=== PATIENT | female | born 1940 | race Caucasian/White ===

== ENCOUNTER → 2020-12-16 01:38 | Outpatient (CLI) | payer MEDICARE, SELFPAY ==
[2020-12-17 19:51] LABS: SARS-CoV-2 RNA PCR Negative
== END ==
PROVIDERS: PCP Internal Medicine; Visit Provider Internal Medicine Gastroenterology
DX: Z01.812 Encounter for preprocedural laboratory examination (principal); Z20.822 Contact with and (suspected) exposure to COVID-19
CPT/HCPCS: C9803; U0003; U0005

== ENCOUNTER 2020-12-19 01:53 | Day surgery (SDC) | payer MEDICARE, SELFPAY ==
[2020-12-10 10:21] VITALS: BMI 26.0
--- NOTE | 2020-12-18 13:13 | WPDANESEPPF ---
Anes - Initial Pre Proc Eval Procedure: Operation Date: 12/19/20 11:00 Proposed Procedures p Screening Colonoscopy - Neal Vasquez MD Date/Time: 12/18/20 13:13 Surgeon: Neal Vasquez MD Pre Op Diagnosis: neoplasm screening Patient Data Age: 80 Gender: F Height: 1.57 m Weight: 64.54 kg Allergies Allergy/AdvReac Type Severity Reaction Status Date / Time Aminoglycosides Allergy Mild WORSENS Verified 12/19/20 10:16 THE WOUND AND GETS INFECTED bacitracin Allergy Unknown Unknown Verified 12/19/20 10:16 ciprofloxacin Allergy Unknown Unknown Verified 12/19/20 10:16 levofloxacin Allergy Unknown Unknown Verified 12/19/20 10:16 neomycin Allergy Unknown Unknown Verified 12/19/20 10:16 Penicillins Allergy Unknown Hives Verified 12/19/20 10:16 polymyxin B Allergy Unknown Unknown Verified 12/19/20 10:16 povidone Allergy Unknown Unknown Verified 12/19/20 10:16 soap Allergy Unknown Unknown Verified 12/19/20 10:16 doxycycline Allergy Unknown Verified 12/19/20 10:16 povidone-iodine Allergy Unknown Verified 12/19/20 10:16 [From Betadine] PCN Allergy Intermediate HIVES Uncoded 12/19/20 10:16 POLYMYXINBSULF Allergy Mild WORSENS Uncoded 12/19/20 10:16 THE WOUND AND GETS INFECTED Home Medications Medication Instructions Recorded Confirmed Type coenzyme Q10 [CoQ-10] 200 mg PO DAILY 11/11/20 12/10/20 History gabapentin 300 mg capsule 300 mg PO DAILY 11/11/20 12/10/20 History isosorbide mononitrate 30 mg 30 mg PO DAILY 11/11/20 12/10/20 History tablet,extended release 24 hr latanoprost 0.005 % eye drops 1 drp EACH EYE DAILY 11/11/20 12/10/20 History levothyroxine 75 mcg tablet 75 mcg PO DAILY 11/11/20 12/10/20 History lisinopril 40 mg tablet 40 mg PO BID #180 tablet 11/11/20 12/10/20 Rx metoprolol tartrate 50 mg tablet 50 mg PO Q12H 11/11/20 12/10/20 History nitroglycerin 0.4 mg sublingual 0.4 mg SUBLINGUAL Q5M PRN #24 11/11/20 12/10/20 Rx tablet tablet probiotic 200 mg BYMOUTH DAILY 11/11/20 12/10/20 History rosuvastatin 40 mg tablet 40 mg PO DAILY 11/11/20 12/10/20 History trazodone 50 mg tablet 50 mg PO QHS PRN 11/11/20 12/10/20 History zinc gluconate 50 mg PO DAILY 11/11/20 12/10/20 History cholecalciferol (vitamin D3) 5,000 units PO DAILY 11/26/20 12/10/20 History lorazepam 0.5 mg tablet 0.5 mg PO TID PRN 12/09/20 12/10/20 History Patient hx anesthesia problems: none Family hx anesthesia problems: none PMFSH Past Medical History Medical History (Updated 12/19/20 @ 10:37 by Ty Santoro, ) Abnormal CT of the abdomen Bicuspid aortic valve BMI 25.0-25.9,adult BMI 26.0-26.9,adult Colon cancer screening Encounter for long-term current use of medication Encounter for Medicare annual wellness exam Essential hypertension Fatigue First degree 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 GERD (gastroesophageal reflux disease) Glaucoma History of heart attack 2018 - no intervention Hx of Clostridium difficile infection Hypothyroidism IBS (irritable bowel syndrome) Insomnia On retirement drug therapy KELLY (obstructive sleep apnea) RLS (restless legs syndrome) Skin lesion of right arm Vision loss Surgical History Surgical History History of cataract surgery Family History Family History Mother Diabetes mellitus Depression Thyroid disease Father Hypertension Heart disease Acute myocardial infarction COPD (chronic obstructive pulmonary disease) Sibling FH: prostate cancer Social History Social History Smoking status: Former smoker Tobacco type: cigarettes Alcohol intake: current Drinks per week: 14 Alcohol use details: 1-2 glasses of wine/vodka most days Substance use: never Substance use type: does not use Living arrangements: alone Spiritual care concerns: No
[2020-12-19 10:18] VITALS: BP 148/71; PULSE 65; RESP 16; TEMP 36.1; O2SAT 99
[2020-12-19] MEDS: LACTATED RINGERS 1,000 ML 150 ML IV CONT (10:31)
--- NOTE | 2020-12-19 10:54 | WPDGICN ---
Assessment and Plan Assessment and plan (1) Colon cancer screening: Code(s): Z12.11 - Encounter for screening for malignant neoplasm of colon Status: Acute Assessment and Plan: Patient presents for screening colonoscopy he is been sometime since she had any exam of the colon. (2) IBS (irritable bowel syndrome): Qualifiers: Irritable bowel syndrome type: with diarrhea Qualified Code(s): K58.0 - Irritable bowel syndrome with diarrhea Code(s): K58.9 - Irritable bowel syndrome without diarrhea Status: Acute Assessment and Plan: patient has a history of IBS but takes no specific medications. She is concerned because of change in bowel habits since April of 2020 she now complains of more frequent loose stools. She denies any bleeding. Colonoscopy was performed and was unremarkable. But radiologist states they could not exclude bowel thickening. Diverticular disease was described. I would recommend we reimplant fiber supplements. A colonoscopy will be performed. GI Consult Note Consult date/time: 12/19/20 10:54 HPI: Amy Boyd is a 80 year old female With a history of irritable bowel syndrome and anxiety. Presents for screening colonoscopy. Patient reports diarrhea since April of 2020. Patient reports several soft stools a day. She denies any bleeding. She has had no weight loss. Minimal abdominal pain. Stool cultures apparently were negative earlier this year. In June of 2020: CT scan was also unremarkable. Diverticular disease was described. Patient currently takes no specific medications for her diarrhea. She may have tried Kaopectate on a few occasions. Her family history is noncontributory. She no longer takes fiber supplementation. She presents today for colonoscopy to evaluate change in bowel habits. Review of Systems Review of Systems: All systems reviewed & are unremarkable except as noted in HPI and below [facility] Past Medical History Medical History (Updated 12/19/20 @ 10:37 by Ty Santoro DO) Abnormal CT of the abdomen Bicuspid aortic valve BMI 25.0-25.9,adult BMI 26.0-26.9,adult Colon cancer screening Encounter for long-term current use of medication Encounter for Medicare annual wellness exam Essential hypertension Fatigue First degree 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 GERD (gastroesophageal reflux disease) Glaucoma History of heart attack 2018 - no intervention Hx of Clostridium difficile infection Hypothyroidism IBS (irritable bowel syndrome) Insomnia 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 KELLY (obstructive sleep apnea) RLS (restless legs syndrome) Skin lesion of right arm Vision loss Surgical History Surgical History History of cataract surgery Family History Family History Mother Diabetes mellitus Depression Thyroid disease Father Hypertension Heart disease Acute myocardial infarction COPD (chronic obstructive pulmonary disease) Sibling FH: prostate cancer Social History Social History Smoking status: Former smoker Tobacco type: cigarettes Alcohol intake: current Drinks per week: 14 Alcohol use details: 1-2 glasses of wine/vodka most days Substance use: never Substance use type: does not use Living arrangements: alone Spiritual care concerns: No Meds Home Medications and Allergies Home Medications Medication Instructions Recorded Confirmed Type coenzyme Q10 [CoQ-10] 200 mg PO DAILY 11/11/20 12/10/20 History gabapentin 300 mg capsule 300 mg PO DAILY 11/11/20 12/10/20 History isosorbide mononitrate 30 mg 30 mg PO DAILY 11/11/20 12/10/20 History tablet,extended release 24 hr latanoprost 0.005 % eye drops 1 drp EACH EYE DAILY 11/11/20 12/10/20 History levothyroxine 75 mcg tablet 75 mcg PO DAILY 11/11/2011/12
[2020-12-19 11:45] VITALS: BP 118/53; PULSE 68; RESP 20; O2SAT 100
[2020-12-19 11:55] VITALS: BP 118/56; PULSE 64; RESP 18; O2SAT 100
[2020-12-19 12:05] VITALS: BP 122/65; PULSE 60; RESP 22; O2SAT 100
== END 2020-12-19 12:19 | disposition home or self-care (01) ==
PROVIDERS: PCP Internal Medicine; Visit Provider Internal Medicine Gastroenterology
PROC: 0DJD8ZZ Inspection of Lower Intestinal Tract, Via Natural or Artificial Opening Endoscopic (ICD-10-PCS; CPT 45378; principal; 2020-12-19 11:00)
DX: Z12.11 Encounter for screening for malignant neoplasm of colon (principal); K58.0 Irritable bowel syndrome with diarrhea; K57.30 Diverticulosis of large intestine without perforation or abscess without bleeding; K64.8 Other hemorrhoids; I10 Essential (primary) hypertension; I25.2 Old myocardial infarction; I44.0 Atrioventricular block, first degree; E03.9 Hypothyroidism, unspecified; K21.9 Gastro-esophageal reflux disease without esophagitis; H40.9 Unspecified glaucoma; G47.33 Obstructive sleep apnea (adult) (pediatric); G25.81 Restless legs syndrome; Z79.899 Other long term (current) drug therapy
CPT/HCPCS: G0121; J2704; J7120

== ENCOUNTER → 2021-03-01 00:21 | Outpatient (CLI) | payer MEDICARE, SELFPAY ==
[2021-03-01 18:14] LABS: SARS-CoV-2 RNA PCR Negative
== END ==
PROVIDERS: PCP Internal Medicine; Visit Provider Internal Medicine
DX: R68.89 Other general symptoms and signs (principal); Z20.822 Contact with and (suspected) exposure to COVID-19
CPT/HCPCS: C9803; U0003; U0005

== ENCOUNTER 2022-04-08 10:20 | Inpatient (IN) | payer MEDICARE, SELFPAY ==
[2022-04-08] VITALS (12 sets, daily range): BP systolic 80–152; BP diastolic 42–73; PULSE 67–129; RESP 14–32; TEMP 35.7–37.3; O2SAT 91–96; BMI 26.2
--- NOTE | ~2022-04-08 | US_ITS ---
Limited Abdominal Sonogram: Real-time sonographic imaging of the right upper quadrant was performed. Clinical History: Abnormal liver enzymes Findings: The liver appears normal with no evidence of mass lesion or bile duct dilatation. Main por tyree vein demonstrates normal direction of flow. The gallbladder is well distended, and appears normal with no evidence of gallstone or wall thickening. The common bile duct measures 6 mm. The visualize d pancreas, aorta, and IVC are unremarkable. Impression: No significant abnormality seen. Reviewed, dictated and finalized at location . [facility] Impression: No significant abnormality seen.
--- NOTE | ~2022-04-08 | XR_ITS ---
Clinical Indication: Cough, weakness PA and lateral views of the chest: Comparison: 09/06/2007 Findings: There is left upper lobe consolidation. Possible minimal haziness right lower lobe.. Cardi omediastinal silhouette is within normal limits. Bones and soft tissues are unremarkable. Impression: Left upper lobe pneumonia. Follow-up to radiographic resolution advised. Possible minimal haziness right lower lobe, nonspecific. Reviewed, dictated and finalized at location M. [employer] WORK[employer] Impression: Left upper lobe pneumonia. Follow-up to radiographic resolution advised. Possible minimal haziness right lower lobe, nonspecific.
--- NOTE | 2022-04-08 10:53 | ECG_ITS ---
Measurements Intervals [place] Rate: 81 P: 73 CA: 207 QRS: -50 QRSD: 140 T: 104 QT: 413 QTc: 480 Interpretive Statements SINUS RHYTHM WITH FREQUENT VENTRICULAR PREMATURE COMPLEXES MARKED LEFT AXIS DEVIATION [QRS AXIS < -30] LEFT BUNDLE BRANCH BLOCK [120+ ms QRS DURATION, 80+ ms Q/S IN V1/V2, 85+ ms R IN I/aVL/V5/V6] NO PREVIOUS ECG AVAILABLE FOR COMPARISON Electronically Signed On 04-10-2022 14:40:37 PATIENT RELATIONS SPECIALIST by David Bronson M.D.
[2022-04-08 11:05] LABS: Basophils Absolute Auto 0.2 K/mm3 (0.0-0.1); Basophils Percent Auto 0.8 % (0.2-1.2); Eosinophils Percent Auto 0.1 % (0-4.4); Hematocrit 40.4 % (37.0-47.0); Hemoglobin 13.5 g/dL (12.0-15.0); Immature Granulocyte Absolute 0.48 K/mm3 (0.00-0.031); Immature Granulocyte Percent A 2.4 % (0-0.5); Lymphocytes Absolute Auto 1.52 K/mm3 (0.9-3.2); Lymphocytes Percent Auto 7.6 % (18.3-44.2); Mean Corpuscular HGB Conc 33.4 g/dl (32-36); Mean Corpuscular Hemoglobin 32.8 pg (26-34); Mean Corpuscular Volume 98.3 fl (80-100); Mean Platelet Volume 9.2 fl (7.4-10.4); Monocytes Absolute Auto 2.1 K/mm3 (0.1-0.6); Monocytes Percent Auto 10.4 % (2.6-8.5); Neutrophils Absolute Auto 15.8 K/mm3 (1.3-6.7); Neutrophils Percent Auto 78.7 % (45.5-73.1); Platelet Count Result 310 k/mm3 (150-375); Red Blood Count 4.11 M/mm3 (4.2-5.4)
[2022-04-08 11:14] LABS: Alanine Aminotransferase 114 U/L (6-35); Albumin Level 3.4 g/dL (3.5-5.1); Alkaline Phosphatase 193 U/L (38-126); Anion Gap 5 mmol/L (8-16); Aspartate Amino Transferase 181 U/L (14-36); Bilirubin,Total 0.5 mg/dL (0.2-1.3); Blood Urea Nitrogen 13 mg/dL (7-17); Calcium 7.9 mg/dL (8.4-10.2); Carbon Dioxide 28 mmol/L (22-30); Chloride 90 mmol/L (98-107); Estimated CRCL calculation 30 ml/min; Estimated Glomerular Filt Rate 53; Glucose 152 mg/dL (65-110); Potassium 3.5 mmol/L (3.4-5.0); Sodium 123 mmol/L (137-145)
[2022-04-08 11:41] LABS: Influenza A QL RT-PCR Negative (Negative); Influenza B QL RT-PCR Negative (Negative); SARS-CoV-2 RNA PCR Negative
--- NOTE | 2022-04-08 12:02 | ED.WEAKNESS ---
HPI - Weakness General Chief complaint: Weakness Stated complaint: flu symptom x 1 week, dehydration, fever, weak Time Seen by Provider: 04/08/22 12:01 History of Present Illness HPI Narrative: Patient is an 81-year-old female with a history of hyperlipidemia, hypertension, hypothyroidism presenting with flu symptoms and generalized weakness. Patient states that starting approximately 8 days ago she developed a cough associated with body aches and nasal congestion. States that she has been trying to rest and keep up her fluid intake but its been difficult for the last several days. States that she has a decreased oral intake for the last several days but she denies vomiting. She does report a couple episodes of diarrhea. She denies fevers, numbness or weakness, chest pain, shortness of breath, dysuria, leg swelling. Related Data Home Medications Medication Instructions Recorded Confirmed isosorbide mononitrate 30 mg 30 mg PO DAILY 11/11/20 04/08/22 tablet,extended release 24 hr latanoprost 0.005 % eye drops 1 drp LEFT EYE HS 11/11/20 04/08/22 rosuvastatin 40 mg tablet 40 mg PO DAILY 11/11/20 04/08/22 zinc gluconate 50 mg PO DAILY 11/11/20 04/08/22 cholecalciferol (vitamin D3) 5,000 units PO DAILY 11/26/20 04/08/22 gabapentin 300 mg capsule 300 mg PO HS 04/08/22 04/08/22 lorazepam 0.5 mg tablet 0.5 mg PO PRN PRN Anxiety 04/08/22 04/08/22 timolol maleate 0.5 % eye drops 0.5 drp LEFT EYE DAILY 04/08/22 04/08/22 trazodone 50 mg tablet 50 mg PO QHS 04/08/22 04/08/22 Allergies Allergy/AdvReac Type Severity Reaction Status Date / Time Aminoglycosides Allergy Mild WORSENS Verified 10/28/21 13:11 THE WOUND AND GETS INFECTED bacitracin Allergy Unknown Unknown Verified 10/28/21 13:11 ciprofloxacin Allergy Unknown Unknown Verified 10/28/21 13:11 levofloxacin Allergy Unknown Unknown Verified 10/28/21 13:11 neomycin Allergy Unknown Unknown Verified 10/28/21 13:11 Penicillins Allergy Unknown Hives Verified 10/28/21 13:11 polymyxin B Allergy Unknown Unknown Verified 10/28/21 13:11 povidone Allergy Unknown Unknown Verified 10/28/21 13:11 soap Allergy Unknown Unknown Verified 10/28/21 13:11 doxycycline Allergy Unknown Verified 10/28/21 13:11 povidone-iodine Allergy Unknown Verified 10/28/21 13:11 [From Betadine] Review of Systems Review of Systems: All systems reviewed & are unremarkable except as noted in HPI and below PMFSH Past Medical History Medical History Abnormal CT of the abdomen Adult hypothyroidism Anxiety ASHD (arteriosclerotic heart disease) Benign essential hypertension Bicuspid aortic valve BMI 25.0-25.9,adult BMI 26.0-26.9,adult Cataract Chronic GERD Colon cancer screening Diverticulitis of colon without hemorrhage KAPADIA (dyspnea on exertion) Eczema Encounter for long-term current use of medication Encounter for Medicare annual wellness exam Encounter for routine adult health examination with abnormal findings Encounter for routine adult health examination without abnormal findings Essential hypertension Exposure to COVID-19 virus Fatigue First degree 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 GERD (gastroesophageal reflux disease) Glaucoma History of heart attack 2018 - no intervention Hx of Clostridium difficile infection Hyperlipidemia Hypothyroidism IBS (irritable bowel syndrome) Insomnia Leg cramps Low vision Muscle weakness On intermediate drug therapy KELLY (obstructive sleep apnea) Other and unspecified hyperlipidemia PVC (premature ventricular contraction) Recurrent sinus infections RLS (restless legs syndrome) Skin lesion of right arm UTI (urinary tract infection) UTI symptoms Vision loss Surgical History Surgical History History of cataract surgery Family History Family History Mother Diabetes mellitus
[2022-04-08 12:48] LABS: Lactic Acid Reflex 1.4 mmol/L (0.7-2.0)
[2022-04-08 12:59] LABS: Creatinine Urine 71.1 mg/dL
[2022-04-08 13:00] LABS: Troponin I < 0.012 ng/mL (0.000-0.034)
[2022-04-08 13:00] LABS: Sodium Urine Random 10 meq/L
[2022-04-08 13:02] LABS: Add Urine Microscopic? YES; Appearance Urine Clear (Clear); Bilirubin Urine Negative (Negative); Blood Urine 2+ (Negative); Color Urine Light Yellow (Yellow); Glucose Urine UA Negative (Negative); Ketones Urine Negative (Negative); Leukocyte Esterase Ur Negative LEU/UL (Negative); Nitrate Urine Negative (Negative); Protein Urine 2+ mg/dL (Negative); pH Urine 5.5 (5.0-9.0)
[2022-04-08] MEDS: SODIUM CHLORIDE 0.9% IV 1,000 ML 999 ML IV CONT (13:09)
[2022-04-08 13:27] LABS: Mucus Urine Rare /lpf; RBC Urine 0-2 /hpf (0-2); Squamous Epithelial Cell Urine Rare /hpf (Few)
--- NOTE | 2022-04-08 15:19 | PC.NURSE ---
meal tray ordered
[2022-04-08 16:12] LABS: Troponin I < 0.012 ng/mL (0.000-0.034)
--- NOTE | 2022-04-08 16:34 | PC.NURSE ---
This patient, Amy Boyd, was admitted to [facility] Surg Room 312-01. Patient/family oriented to hospital policies and general routines including ID bracelet, bed and alarms, visiting hours, pain management, procedures, bathroom and other care routines, personal items, smoking policy, room service/diet, and visiting hours. Information on how to activate the Rapid Response Team has been discussed. Patient/Family are encouraged to report perceived risks to care and to ask questions if they do not understand what they are told or what they should do.
--- NOTE | 2022-04-08 19:38 | PM.IMHP ---
H&P: HPI History of Present Illness Date/Time: 04/08/22 19:38 Chief Complaint: Weakness Narrative: This is an 81-year-old female patient who has a history of hyperlipidemia, hypertension and hypothyroidism. The patient came to the emergency room with complaints of flu-like symptoms and generalized weakness. The patient stated that her symptoms started approximately 8 days ago. She has been taking Mucinex for the nasal congestion. The patient stated that she has been coughing up sputum it is not aware what collar the sputum is. She had a decrease in oral intake for the last several days. She has had a poor appetite. She has not had any nausea vomiting but has had a couple episodes of diarrhea. She has had no fever chills. No shortness of breath. Nose leg swelling. Her white count is noted to be 20.0. Her sodium is 123. Her sodium is typically normal. Her lactic is normal 1.4. Troponin is nonreactive. Liver enzymes are elevated. She was found to be negative for influenza A/B and COVID. She was started on vancomycin and cefepime as well as IV fluids. The patient's chest x-ray was read as possible minimal haziness right lower lobe nonspecific. Left upper lobe pneumonia. The patient is being admitted to observation status on the date of service of 04/08/2022. Review of Systems Review of Systems: See HPI All systems reviewed & are unremarkable except as noted in HPI and below Constitutional: Constitutional: Reports as per HPI and Reports no additional constitutional complaints Eyes: Eyes: Reports as per HPI and Reports no additional eye complaints ENT: Reports system reviewed and no additional complaints, except as documented and Reports Normal hearing present Cardiovascular: Cardiovascular: Reports no additional cardiovascular complaints Respiratory: Respiratory: Reports no additional respiratory complaints and Reports no additional respiratory complaints Gastrointestinal: Gastrointestinal: Reports as per HPI and Reports no additional gastrointestinal complaints Musculoskeletal: Musculoskeletal: Reports no additional musculoskeletal complaints Integumentary/Breasts: Skin/Breast: Reports system reviewed and no additional complaints, except as docu and Reports as per HPI Neurologic: Reports system reviewed and no additional complaints, except as documented, Reports as per HPI and Reports Normal hearing present Psychiatric: Psychiatric: Reports no additional psychiatric complaints and Reports as per HPI Endocrine: Endocrine: Reports no additional endocrine complaints Hematologic/Lymphatic: Hematologic/Lymphatic: Reports no additional hematologic/lymphatic complaints Allergic/Immunologic: Allergic/Immunologic: Reports no additional allergic/immunologic complaints [facility] Past Medical History Medical History (Updated 04/08/22 @ 22:37 by Ana Sawant NP) Abnormal CT of the abdomen Adult hypothyroidism Anxiety ASHD (arteriosclerotic heart disease) Benign essential hypertension Bicuspid aortic valve BMI 25.0-25.9,adult BMI 26.0-26.9,adult Cataract Chronic GERD Colon cancer screening Depression Diverticulitis of colon without hemorrhage KAPADIA (dyspnea on exertion) Eczema Encounter for long-term current use of medication Encounter for Medicare annual wellness exam Encounter for routine adult health examination with abnormal findings Encounter for routine adult health examination without abnormal findings Essential hypertension Exposure to COVID-19 virus Fatigue First degree 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 GERD (gastroesophageal reflux disease) Glaucoma History of heart attack 2018 - no intervention Hx of Clostridium difficile infection Hyperlipidemia Hypothyroidism IBS (irritable bowel syndrome) Insomnia Leg cramps Low vision Muscle weakness 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
[2022-04-08] MEDS: LATANOPROST 0.005% OP SOLN 2.5 ML BTL 1 DROP LEFT EYE (22:54)
[2022-04-08] MEDS: LORazepam (*CRX) 0.5 MG TABLET PO (22:54)
[2022-04-08] MEDS: METOPROLOL TARTRATE 50 MG TAB PO (22:54)
[2022-04-08] MEDS: traZODone HCL 50 MG TABLET PO (22:54)
[2022-04-08] MEDS: lisinopriL 20 MG TABLET 40 MG PO (22:55)
[2022-04-08] MEDS: GABAPENTIN 300 MG CAPSULE PO (22:55)
[2022-04-08 23:20] LABS: Anion Gap 7 mmol/L (8-16); Blood Urea Nitrogen 12 mg/dL (7-17); Calcium 7.9 mg/dL (8.4-10.2); Carbon Dioxide 26 mmol/L (22-30); Chloride 94 mmol/L (98-107); Estimated CRCL calculation 33 ml/min; Estimated Glomerular Filt Rate 60; Glucose 110 mg/dL (65-110); Potassium 3.2 mmol/L (3.4-5.0); Sodium 127 mmol/L (137-145)
[2022-04-09] VITALS (23 sets, daily range): BP systolic 105–125; BP diastolic 60–70; PULSE 88–105; RESP 14–26; TEMP 36.6–37.3; O2SAT 90–97; BMI 26.2
[2022-04-09] MEDS: IPRATROPIUM BR 0.02% INH SOLN 0.5 MG/2.5 ML VIAL INHALATION ×4 (02:55→21:33)
[2022-04-09] MEDS: ALBUTEROL SULFATE NEB 2.5 MG/3 ML INH INHALATION ×4 (02:56→21:36)
[2022-04-09] MEDS: LEVOTHYROXINE SODIUM 75 MCG TABLET PO (06:52)
[2022-04-09 06:59] LABS: Lactic Acid Reflex 0.9 mmol/L (0.7-2.0)
[2022-04-09 07:01] LABS: Alanine Aminotransferase 129 U/L (6-35); Albumin Level 2.8 g/dL (3.5-5.1); Alkaline Phosphatase 193 U/L (38-126); Anion Gap 5 mmol/L (8-16); Aspartate Amino Transferase 188 U/L (14-36); Bilirubin,Total 0.4 mg/dL (0.2-1.3); Blood Urea Nitrogen 11 mg/dL (7-17); Calcium 7.6 mg/dL (8.4-10.2); Carbon Dioxide 27 mmol/L (22-30); Chloride 98 mmol/L (98-107); Estimated CRCL calculation 37 ml/min; Estimated Glomerular Filt Rate > 60; Glucose 102 mg/dL (65-110); Lactate Dehydrogenase 330 U/L (120-246); Magnesium 2.3 mg/dL (1.6-2.3); Potassium 3.1 mmol/L (3.4-5.0); Sodium 130 mmol/L (137-145)
[2022-04-09 07:39] LABS: Thyroid Stimulating Hormone Reflex 0.747 uIU/mL (0.465-4.68)
[2022-04-09 07:55] LABS: Hepatitis B Surface Antigen Negative (Negative)
[2022-04-09 07:59] LABS: HAV RESULT Negative (Negative); Hepatitis B Core IgM Result Negative (Negative)
[2022-04-09 08:10] LABS: Hepatitis C Virus Antibody Negative (Negative)
[2022-04-09 09:20] LABS: Basophils Absolute Auto 0.1 K/mm3 (0.0-0.1); Basophils Percent Auto 0.5 % (0.2-1.2); Eosinophils Percent Auto 0.2 % (0-4.4); Hematocrit 34.6 % (37.0-47.0); Hemoglobin 12.1 g/dL (12.0-15.0); Immature Granulocyte Absolute 0.33 K/mm3 (0.00-0.031); Lymphocytes Absolute Auto 1.53 K/mm3 (0.9-3.2); Lymphocytes Percent Auto 9.2 % (18.3-44.2); Mean Corpuscular Hemoglobin 33.7 pg (26-34); Mean Corpuscular Volume 96.4 fl (80-100); Mean Platelet Volume 9.6 fl (7.4-10.4); Monocytes Absolute Auto 2.1 K/mm3 (0.1-0.6); Monocytes Percent Auto 12.3 % (2.6-8.5); Neutrophils Absolute Auto 12.6 K/mm3 (1.3-6.7); Neutrophils Percent Auto 75.8 % (45.5-73.1); Platelet Count Result 249 k/mm3 (150-375); Red Blood Count 3.59 M/mm3 (4.2-5.4); Red Cell Distribution Width 12.2 % (11.5-14.5); White Blood Count 16.7 K/mm3 (4.5-10.0)
[2022-04-09] MEDS: ISOSORBIDE MONONITRATE 30 MG TAB.ER.24H PO (09:51)
[2022-04-09] MEDS: METOPROLOL TARTRATE 50 MG TAB PO ×2 (09:51→21:13)
[2022-04-09] MEDS: lisinopriL 20 MG TABLET 40 MG PO ×2 (09:51→21:14)
[2022-04-09] MEDS: TIMOLOL MALEATE 0.5% OP SOLN 5 ML BOTTLE 1 DROP LEFT EYE (09:52)
[2022-04-09] MEDS: POTASSIUM CHLORIDE 20 MEQ TABLET 40 MEQ PO (10:01)
[2022-04-09] MEDS: guaiFENesin/DEXTROMETHORPHAN 10 ML UDC PO ×2 (11:13→16:10)
--- NOTE | 2022-04-09 13:05 | PM.IMPN ---
Progress Note: A&P Assessment and Plan (1) Pneumonia: Code(s): J18.9 - Pneumonia, unspecified organism Status: Acute Assessment and Plan: -the patient was started on cefepime and vancomycin. The pain was renally adjusted by pharmacy. -blood cultures and sputum cultures are pending. -tailor antibiotics to results of cultures. -continue with nebulizer treatments. -continue with Robitussin. -patient had leukocytosis with white count of 20. -may be early sepsis with elevated liver enzymes. Continue to monitor for signs and symptoms of organ failure (2) Hyponatremia: Code(s): E87.1 - Hypo-osmolality and hyponatremia Status: Acute Assessment and Plan: -most likely related to poor oral intake. The patient is not on any diuretics. -continue with IV fluids -serum osmolality is pending. Urine osmolality is pending as well. (3) Hyperlipidemia: Code(s): E78.5 - Hyperlipidemia, unspecified Status: Acute Assessment and Plan: -holding statins as her liver enzymes are elevated. (4) Elevated liver enzymes: Code(s): R74.8 - Abnormal levels of other serum enzymes Status: Acute Assessment and Plan: -holding statin due to elevated liver enzymes. -will do ultrasound of her abdomen. -hepatitis panel is pending (5) Glaucoma: Qualifiers: Glaucoma type: unspecified Laterality: unspecified laterality Qualified Code(s): H40.9 - Unspecified glaucoma Code(s): H40.9 - Unspecified glaucoma Status: Acute Assessment and Plan: -continue with home eye drops. (6) Hypothyroidism: Qualifiers: Hypothyroidism type: unspecified Qualified Code(s): E03.9 - Hypothyroidism, unspecified Code(s): E03.9 - Hypothyroidism, unspecified Status: Acute Assessment and Plan: -continue levothyroxine and check thyroid level. (7) Essential hypertension: Code(s): I10 - Essential (primary) hypertension Status: Acute Assessment and Plan: -continue with lisinopril if blood pressure allows. -continue with isosorbide. -continue with metoprolol (8) GERD (gastroesophageal reflux disease): Code(s): K21.9 - Gastro-esophageal reflux disease without esophagitis Status: Acute Assessment and Plan: -continue with pantoprazole (9) Depression: Code(s): F32.A - Depression, unspecified Status: Acute Assessment and Plan: -continue with trazodone at night and lorazepam for anxiety. Subjective Date/time seen: 04/09/22 13:05 No complaints Exam Narrative: See HPI Const: General: cooperative, comfortable, no acute distress, well developed, alert, awake, Physically active, ill appearing, average body habitus and well nourished Nutritional Appearance: average body habitus and well nourished Orientation/consciousness: oriented to person, oriented to place, oriented to time and patient oriented x3 Limitations: no limitations HENMT: Head: normal to inspection, No palpable skull fracture present, normocephalic and atraumatic Ears: hearing grossly normal bilaterally and external ears normal Face/Nose/Sinus: Normal external nose present and Normal nares present Eyes: General: appearance normal, both eyes and all related structures Alignment and Position: alignment normal Periorbital: periorbital findings normal Eyelids: eyelids normal Sclera: sclerae normal Pupils: Equal, round and reactive pupils present EOM: EOMs intact bilaterally Neck: Neck: normal visual inspection, full ROM, no lymphadenopathy, trachea midline and supple Chest: Chest palpation & inspection: normal inspection of the chest Resp: Effort & Inspection: normal respiratory effort Auscultation: clear to auscultation bilaterally and wheezes Percussion: percussion normal Cardio: Palpation: normal PMI Rate: regular rate Rhythm: regular rhythm Heart sounds: S1 normal heart sound present and S2 normal heart sound pre
[2022-04-09] MEDS: GABAPENTIN 300 MG CAPSULE PO (21:12)
[2022-04-09] MEDS: LATANOPROST 0.005% OP SOLN 2.5 ML BTL 1 DROP LEFT EYE (21:13)
[2022-04-09] MEDS: traZODone HCL 50 MG TABLET PO (21:19)
[2022-04-09] MEDS: ACETAMINOPHEN 500 MG TABLET PO (22:49)
[2022-04-10] VITALS (12 sets, daily range): BP systolic 122–152; BP diastolic 73–77; PULSE 80–107; RESP 16–18; TEMP 36.8–37.7; O2SAT 90–97
[2022-04-10] MEDS: IPRATROPIUM BR 0.02% INH SOLN 0.5 MG/2.5 ML VIAL INHALATION ×2 (02:29→08:34)
[2022-04-10] MEDS: ALBUTEROL SULFATE NEB 2.5 MG/3 ML INH INHALATION ×2 (02:29→08:34)
[2022-04-10] MEDS: LEVOTHYROXINE SODIUM 75 MCG TABLET PO (06:08)
[2022-04-10 06:53] LABS: Hematocrit 42.1 % (37.0-47.0); Hemoglobin 14.2 g/dL (12.0-15.0); Mean Corpuscular HGB Conc 33.7 g/dl (32-36); Mean Corpuscular Hemoglobin 33.7 pg (26-34); Mean Platelet Volume 9.1 fl (7.4-10.4); Platelet Count Result 320 k/mm3 (150-375); Red Blood Count 4.21 M/mm3 (4.2-5.4); Red Cell Distribution Width 12.5 % (11.5-14.5); White Blood Count 17.9 K/mm3 (4.5-10.0)
[2022-04-10 07:03] LABS: Anion Gap 6 mmol/L (8-16); Blood Urea Nitrogen 12 mg/dL (7-17); Calcium 8.3 mg/dL (8.4-10.2); Carbon Dioxide 31 mmol/L (22-30); Chloride 97 mmol/L (98-107); Estimated CRCL calculation 41 ml/min; Estimated Glomerular Filt Rate > 60; Glucose 107 mg/dL (65-110); Potassium 3.7 mmol/L (3.4-5.0); Sodium 134 mmol/L (137-145)
[2022-04-10 08:00] LABS: Band Neutrophils Percent 22 % (0-6); Lymphocytes Absolute Manual 2.86 K/mm3 (1.1-4.5); Monocytes Absolute Manual 1.25 K/mm3 (0.1-0.90); Monocytes Percent Manual 7 % (3-9); Neutrophils Absolute Manual 13.78 K/mm3 (1.7-7.2); Neutrophils Percent Manual 55 % (46-73); Platelet Estimate Adequate (Adequate); Total Cells Counted 100
[2022-04-10 08:01] LABS: Anisocytosis 1+ (NORMAL)
[2022-04-10 08:15] LABS: Schistocytes None Seen (NORMAL)
[2022-04-10] MEDS: lisinopriL 20 MG TABLET 40 MG PO (09:11)
[2022-04-10] MEDS: ISOSORBIDE MONONITRATE 30 MG TAB.ER.24H PO (09:11)
[2022-04-10] MEDS: TIMOLOL MALEATE 0.5% OP SOLN 5 ML BOTTLE 1 DROP LEFT EYE (09:12)
[2022-04-10] MEDS: METOPROLOL TARTRATE 50 MG TAB PO (09:13)
[2022-04-10] MEDS: guaiFENesin/DEXTROMETHORPHAN 10 ML UDC PO (11:21)
--- NOTE | 2022-04-10 13:10 | PM.DS ---
DS: Admitting Diagnosis Discharge Date April 10, 2022 Admitting Diagnosis Pneumonia DS: Discharge Diagnosis Discharge Diagnosis (1) Pneumonia: Code(s): J18.9 - Pneumonia, unspecified organism Status: Acute Assessment and Plan: -the patient was started on cefepime and vancomycin. -blood cultures and sputum cultures are pending. -tailor antibiotics to results of cultures. -continue with nebulizer treatments. -continue with Robitussin. -patient had leukocytosis with white count of 20. -may be early sepsis with elevated liver enzymes. Continue to monitor for signs and symptoms of organ failure (2) Hyponatremia: Code(s): E87.1 - Hypo-osmolality and hyponatremia Status: Acute Assessment and Plan: -most likely related to poor oral intake. The patient is not on any diuretics. -continue with IV fluids -serum osmolality is pending. Urine osmolality is pending as well. (3) Hyperlipidemia: Code(s): E78.5 - Hyperlipidemia, unspecified Status: Acute Assessment and Plan: -holding statins as her liver enzymes are elevated. (4) Elevated liver enzymes: Code(s): R74.8 - Abnormal levels of other serum enzymes Status: Acute Assessment and Plan: -holding statin due to elevated liver enzymes. -will do ultrasound of her abdomen. -hepatitis panel is pending (5) Glaucoma: Qualifiers: Glaucoma type: unspecified Laterality: unspecified laterality Qualified Code(s): H40.9 - Unspecified glaucoma Code(s): H40.9 - Unspecified glaucoma Status: Acute Assessment and Plan: -continue with home eye drops. (6) Hypothyroidism: Qualifiers: Hypothyroidism type: unspecified Qualified Code(s): E03.9 - Hypothyroidism, unspecified Code(s): E03.9 - Hypothyroidism, unspecified Status: Acute Assessment and Plan: -continue levothyroxine and check thyroid level. (7) Essential hypertension: Code(s): I10 - Essential (primary) hypertension Status: Acute Assessment and Plan: -continue with lisinopril if blood pressure allows. -continue with isosorbide. -continue with metoprolol (8) GERD (gastroesophageal reflux disease): Code(s): K21.9 - Gastro-esophageal reflux disease without esophagitis Status: Acute Assessment and Plan: -continue with pantoprazole (9) Depression: Code(s): F32.A - Depression, unspecified Status: Acute Assessment and Plan: -continue with trazodone at night and lorazepam for anxiety. DS: Summary Hospital Course Hospital Course: Patient is an 81-year-old female who came in with pneumonia. Started on antibiotics improved clinically. She is sitting in her chair and able to walk around her room without any oxygen needs. Patient wants to go. Patient will be discharged home on oral antibiotics. Will need follow-up primary care physician. Will need a follow-up chest x-ray as well in a couple weeks Time Spent with Patient Time attestation: Total time spent providing and/or coordinating discharge services: Exam Const: General: cooperative, comfortable, no acute distress, well developed, alert, awake, Physically active, ill appearing, average body habitus and well nourished Nutritional Appearance: average body habitus and well nourished Orientation/consciousness: oriented to person, oriented to place, oriented to time and patient oriented x3 Limitations: no limitations HENMT: Head: normal to inspection, No palpable skull fracture present, normocephalic and atraumatic Ears: hearing grossly normal bilaterally and external ears normal Face/Nose/Sinus: Normal external nose present and Normal nares present Eyes: General: appearance normal, both eyes and all related structures Alignment and Position: alignment normal Periorbital: periorbital findings normal Eyelids: eyelids normal Sclera: sclerae normal Pupils: Equal, round and reactive
[2022-04-10] MEDS: ACETAMINOPHEN 500 MG TABLET PO (13:18)
[2022-04-10 19:43] LABS: Osmolality, Urine 279 mOsm/kg (50-1200)
== END 2022-04-10 14:15 | disposition home or self-care (01) | DRG 194 ==
LOC: ANHED 12:06 → ANH3MEDSUR 15:31
PROVIDERS: General Practice; Nurse Practitioner; Admitting Provider Internal Medicine; Emergency Provider Emergency Medicine; PCP Internal Medicine; Visit Provider Chiropractor
DX: J18.9 Pneumonia, unspecified organism (principal); E87.1 Hypo-osmolality and hyponatremia; I10 Essential (primary) hypertension; I25.10 Atherosclerotic heart disease of native coronary artery without angina pectoris; E03.9 Hypothyroidism, unspecified; E78.5 Hyperlipidemia, unspecified; K21.9 Gastro-esophageal reflux disease without esophagitis; K57.30 Diverticulosis of large intestine without perforation or abscess without bleeding; K58.9 Irritable bowel syndrome, unspecified; R74.8 Abnormal levels of other serum enzymes; I25.2 Old myocardial infarction; H40.9 Unspecified glaucoma; G47.33 Obstructive sleep apnea (adult) (pediatric); F41.9 Anxiety disorder, unspecified; Z20.822 Contact with and (suspected) exposure to COVID-19; Z79.899 Other long term (current) drug therapy; Z87.891 Personal history of nicotine dependence
CPT/HCPCS: 36415; 71046; 76705; 80048; 80053; 80074; 81001; 82570; 83605; 83615; 83735; 83930; 83935; 84300; 84443; 84484; 85025; 87040; 87086; 87636; 93005; 94640; 96365; 96366; 96367; 99285; A9270; G0378; J0692; J3370; J7030

== ENCOUNTER → 2022-04-24 09:40 | Outpatient (CLI) | payer MEDICARE, SELFPAY ==
--- NOTE | ~2022-04-24 | XR_ITS ---
EXAMINATION: XR chest 2V DATE: 04/24/2022 10:13 INDICATION: Pneumonia, unspecified, continued cough TECHNIQUE: PA and lateral views of the chest are obtained. COMPARISON: 03/31/2022 FINDINGS: There are persistent but improved airspace opacities of the left upper lobe. Scarring is no raissa in the lung apices. There is a small left pleural effusion without significant change. No pneumot horax is identified. The cardiomediastinal silhouette is normal. There is mild thoracic spondylosis. IMPRESSION: 1. Left upper lobe airspace opacities with interval improvement, consistent with resolving pneumonia. Continued radiographic follow-up to resolution is recommended. Reviewed, dictated and finalized at location B. TER SUPERVISOR IMPRESSION: 1. Left upper lobe airspace opacities with interval improvement, consistent wit h resolving pneumonia. Continued radiographic follow-up to resolution is recomm ended.
== END ==
PROVIDERS: PCP Nurse Practitioner; Visit Provider Nurse Practitioner
DX: J18.9 Pneumonia, unspecified organism (principal)
CPT/HCPCS: 71046

== ENCOUNTER → 2022-05-15 09:20 | Outpatient (CLI) | payer MEDICARE, SELFPAY ==
--- NOTE | ~2022-05-15 | XR_ITS ---
Clinical Indication: Pneumonia PA and lateral views of the chest: Comparison: 04/24/2022 Findings: There is persistent left upper lobe irregular airspace consolidation.. Cardiomediastinal s ilhouette is within normal limits. Bones and soft tissues are unremarkable. Impression: Persistent irregular area of left upper lobe airspace consolidation. Although this could reflect slow ly resolving pneumonia, persistence since 04/08/2022 raises the possibility of alternative diagnosis, such as neoplasm. Consider CT scan to further assess the morphology of this abnormality Reviewed, dictated and finalized at location M. ER OPERATOR AUTOMATIC Impression: Persistent irregular area of left upper lobe airspace consolidation. Although t his could reflect slowly resolving pneumonia, persistence since 04/08/2022 rais es the possibility of alternative diagnosis, such as neoplasm. Consider CT scan to further assess the morphology of this abnormality
== END ==
PROVIDERS: PCP Internal Medicine; Visit Provider Nurse Practitioner
DX: J18.9 Pneumonia, unspecified organism (principal)
CPT/HCPCS: 71046

== ENCOUNTER 2022-05-20 13:27 | Outpatient (CLI) | payer MEDICARE, SELFPAY ==
--- NOTE | ~2022-05-20 | CT_ITS ---
EXAMINATION: CT diagnostic chest wo con DATE: 05/20/2022 14:01 INDICATION: Persistent airspace opacification of the left upper lobe on chest radiograph TECHNIQUE: Computed tomography (CT) of the chest was performed without intravenous contrast. The dose -length product (DLP) was 144.78 mGy-cm. Automated exposure control and iterative reconstruction tech ROLI were employed. COMPARISON: Chest radiograph, 05/15/2022 FINDINGS: There are airspace opacities of the upper lobes, left greater than right, right middle lobe , and left lower lobe. There is mild pleural thickening in the left lung base with a chronic adjacent rounded pleural-based opacity, consistent with rounded atelectasis. No pathologically enlarged thora cic lymph nodes are identified. The heart size is normal. There is calcified coronary artery atherosc lerosis. No pleural effusion or pneumothorax. There is mild thoracic spondylosis. IMPRESSION: 1. Airspace opacities of the upper lobes, right middle lobe, and left lower lobe most consistent with resolving infection/inflammation. Consider follow-up low-dose CT in three months. Reviewed, dictated and finalized at location B. [employer] IMPRESSION: 1. Airspace opacities of the upper lobes, right middle lobe, and left lower lob e most consistent with resolving infection/inflammation. Consider follow-up low -dose CT in three months.
== END 2022-05-20 13:28 | disposition home or self-care (01) ==
PROVIDERS: PCP Internal Medicine; Visit Provider Nurse Practitioner
DX: R93.89 Abnormal findings on diagnostic imaging of other specified body structures (principal)
CPT/HCPCS: 71250

== ENCOUNTER 2022-07-12 18:14 | Emergency (ER) | payer MEDICARE, SELFPAY ==
[2022-07-12 18:26] VITALS: BP 208/78; PULSE 69; RESP 18; TEMP 37; O2SAT 98
--- NOTE | 2022-07-12 18:35 | ED.GENADULT ---
HPI - General Adult General Chief complaint: Recheck/Abnormal Lab/Rx Stated complaint: High B/P Time Seen by Provider: 07/12/22 18:35 Source: patient Mode of arrival: ambulatory Limitations: no limitations History of Present Illness HPI narrative: 81-year-old female with history of hypertension presents today with complaint pain to left forehead throbbing, dyspnea. States that last time the vein to her forehead was throbbing her blood pressure was elevated. She checked at in her blood pressure was high. [facility] and they checked her blood pressure for her and it was still elevated. Was told to go to the ER by the pharmacist. Patient states [facility] she thought we could do the same thing here. She denies chest pain. Patient takes lisinopril, metoprolol and isosorbide for high blood pressure and states that she has not missed any doses. All systems reviewed and negative except as noted above. Related Data Home Medications Medication Instructions Recorded Confirmed isosorbide mononitrate 30 mg 30 mg PO DAILY 11/11/20 04/16/22 tablet,extended release 24 hr latanoprost 0.005 % eye drops 1 drp LEFT EYE HS 11/11/20 04/16/22 timolol maleate 0.5 % eye drops 0.5 drp LEFT EYE DAILY 04/08/22 04/16/22 aspirin 81 mg tablet,delayed 81 mg PO DAILY 05/05/22 release (Adult Low Dose Aspirin) Allergies Allergy/AdvReac Type Severity Reaction Status Date / Time Aminoglycosides Allergy Mild WORSENS Verified 07/12/22 18:24 THE WOUND AND GETS INFECTED bacitracin Allergy Unknown Unknown Verified 07/12/22 18:24 ciprofloxacin Allergy Unknown Unknown Verified 07/12/22 18:24 levofloxacin Allergy Unknown Unknown Verified 07/12/22 18:24 neomycin Allergy Unknown Unknown Verified 07/12/22 18:24 Penicillins Allergy Unknown Hives Verified 07/12/22 18:24 polymyxin B Allergy Unknown Unknown Verified 07/12/22 18:24 povidone Allergy Unknown Unknown Verified 07/12/22 18:24 soap Allergy Unknown Unknown Verified 07/12/22 18:24 doxycycline Allergy Unknown Verified 07/12/22 18:24 povidone-iodine Allergy Unknown Verified 07/12/22 18:24 [From Betadine] Review of Systems Review of Systems: CONSTITUTIONAL: Denies fever, chills, or sweats. EYES: Denies visual changes, redness, or discharge. ENT: Denies rhinorrhea, congestion, sore throat, or otalgia. CARDIOVASCULAR: Denies chest pain, palpitations, or edema. Reports dyspnea. RESPIRATORY: Denies cough or dyspnea. GASTROINTESTINAL: Denies abdominal pain, nausea, vomiting, or diarrhea. GENITOURINARY: Denies dysuria or hematuria. SKIN: Denies rash or itching. MUSCULOSKELETAL: Denies back pain, joint pain, or myalgia. NEUROLOGIC: Reports headache. Denies numbness, or weakness. PSYCHIATRIC: Denies anxiety or depression. All other systems reviewed are negative, except as documented in HPI. [facility] Past Medical History Medical History Abnormal CT of the abdomen Adult hypothyroidism Anxiety ASHD (arteriosclerotic heart disease) Benign essential hypertension Bicuspid aortic valve BMI 25.0-25.9,adult BMI 26.0-26.9,adult Cataract Chronic GERD Colon cancer screening Depression Diverticulitis of colon without hemorrhage KAPADIA (dyspnea on exertion) Eczema Encounter for long-term current use of medication Encounter for Medicare annual wellness exam Encounter for routine adult health examination with abnormal findings Encounter for routine adult health examination without abnormal findings Essential hypertension Exposure to COVID-19 virus Fatigue First degree 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 GERD (gastroesophageal reflux disease) Glaucoma History of heart attack 2018 - no intervention Hx of Clostridium difficile infection Hyperlipidemia Hypothyroidism IBS (irritable bowel syndrome) Insomnia Leg cramps Low vision Muscle weakness On custodial drug therapy KELLY (obstructive
--- NOTE | 2022-07-12 18:36 | ECG_ITS ---
Measurements Intervals [place] Rate: 66 P: 77 DC: 210 QRS: -49 QRSD: 126 T: 104 QT: 403 QTc: 424 Interpretive Statements SINUS RHYTHM WITH FIRST DEGREE AV BLOCK POSSIBLE LEFT ATRIAL ENLARGEMENT [-0.1mV P WAVE IN V1/V2] MARKED LEFT AXIS DEVIATION [QRS AXIS < -30] LEFT BUNDLE BRANCH BLOCK [120+ ms QRS DURATION, 80+ ms Q/S IN V1/V2, 85+ ms R IN I/aVL/V5/V6] COMPARED TO ECG 04/08/2022 10:49:18 FIRST DEGREE AV BLOCK NOW PRESENT Electronically Signed On 07-13-2022 12:17:55 CDT by Anushka Bull M.D.
[2022-07-12 18:41] VITALS: BP 220/100
== END 2022-07-12 18:51 | disposition short-term general hospital (02) ==
PROVIDERS: Emergency Provider Nurse Practitioner Family; PCP Nurse Practitioner
DX: I10 Essential (primary) hypertension (principal); R06.00 Dyspnea, unspecified; I44.0 Atrioventricular block, first degree; I44.7 Left bundle-branch block, unspecified; Z87.891 Personal history of nicotine dependence; E03.9 Hypothyroidism, unspecified; K21.9 Gastro-esophageal reflux disease without esophagitis; H40.9 Unspecified glaucoma; I25.2 Old myocardial infarction; E78.5 Hyperlipidemia, unspecified; G47.33 Obstructive sleep apnea (adult) (pediatric); Z91.199 Patient's noncompliance with other medical treatment and regimen due to unspecified reason; G25.81 Restless legs syndrome
CPT/HCPCS: 93005; 99213; G0463

== ENCOUNTER 2022-07-12 19:15 | Observation (INO) | payer MEDICARE, SELFPAY ==
--- NOTE | ~2022-07-12 | CT_ITS ---
EXAMINATION: CTA brain carotid DATE: 07/13/2022 01:30 INDICATION: Left-sided headache. TECHNIQUE: Computed tomographic angiography (CTA) of the head was performed without and with 100 mL O mnipaque-350 intravenous contrast. CTA of the neck was performed with intravenous contrast. Automated exposure control and iterative reconstruction technique were employed. The dose-length product was 1 583.24 mGy-cm. Maximum intensity projection and volume rendered 3D-reconstructions were created by kristan miller technologist on a separate workstation. COMPARISON: None. FINDINGS: HEAD CTA: There is no intracranial hemorrhage, acute infarction, or abnormal intracranial mass lesion . There are scattered areas of low attenuation in the cerebral white matter, which is within normal l imits for the patient's age. The ventricles are normal in size. There is mild mucosal thickening in t he ethmoid sinuses. There is a right otomastoid effusion. The vertebral arteries are codominant. Ther e is no significant stenosis of basilar artery or the posterior cerebral arteries. There is no signif icant stenosis of the intracranial internal carotid arteries or anterior or middle cerebral arteries. Anterior communicating artery is normal. Left posterior communicating artery is normal. A right post erior communicating artery is not identified. There is no aneurysm. NECK CTA: There is mild emphysema. There is mild scarring at the lung apices. Calcified right hilar l ymph nodes are consistent with old granulomatous disease. Aortic atherosclerosis is noted. There is n o significant stenosis of the vertebral arteries. There is plaque in the proximal internal carotid ar teries. There is 0% stenosis of the proximal right internal carotid artery relative to normal distal artery lumen diameter (NASCET criteria). There is 0% stenosis of the proximal left internal carotid a rtery relative to normal distal artery lumen diameter. There is severe cervical spondylosis. IMPRESSION: 1. Normal aging brain. 2. No aneurysm or significant intracranial arterial stenosis. 3. 0% stenosis of the proximal internal carotid arteries relative to normal distal artery lumen diame ters (NASCET criteria). 4. Right otomastoid effusion. Reviewed, dictated and finalized at location D. IMPRESSION: 1. Normal aging brain. 2. No aneurysm or significant intracranial arterial stenosis. 3. 0% stenosis of the proximal internal carotid arteries relative to normal dis tyree artery lumen diameters (NASCET criteria). 4. Right otomastoid effusion.
--- NOTE | ~2022-07-12 | XR_ITS ---
EXAMINATION: XR chest 2V DATE: 07/13/2022 00:11 INDICATION: Shortness of breath and hypertension TECHNIQUE: PA and lateral views of the chest were obtained. COMPARISON: Chest radiograph dated 05/20/2022 FINDINGS: Mild biapical pleural-parenchymal scarring. Persistent mild elevation of the left hemidiaphragm with chronic mild peripheral pleural parenchymal scarring at the lateral mid to lower left lung. No new ai rspace opacities, pulmonary edema, pleural effusion or pneumothorax. The cardiomediastinal silhouette is normal. Mild thoracolumbar levocurvature. IMPRESSION: 1. Chronic mild peripheral pleural parenchymal scarring unchanged at the bilateral apices and with so me improvement at the lateral left mid and lower lung. Reviewed, dictated and finalized at location A. IMPRESSION: 1. Chronic mild peripheral pleural parenchymal scarring unchanged at the bilate ral apices and with some improvement at the lateral left mid and lower lung.
[2022-07-12 20:26] VITALS: BP 210/97; PULSE 85; RESP 16; TEMP 36.4; O2SAT 97
--- NOTE | 2022-07-12 20:32 | ECG_ITS ---
Measurements Intervals [place] Rate: 69 P: 76 [place]: 211 QRS: -52 QRSD: 130 T: 78 QT: 407 QTc: 438 Interpretive Statements SINUS RHYTHM WITH FIRST DEGREE AV BLOCK MARKED LEFT AXIS DEVIATION [QRS AXIS < -30] LEFT BUNDLE BRANCH BLOCK [120+ ms QRS DURATION, 80+ ms Q/S IN V1/V2, 85+ ms R IN I/aVL/V5/V6] COMPARED TO ECG 07/12/2022 18:40:24 NO SIGNIFICANT CHANGES Electronically Signed On 07-13-2022 12:20:21 CDT by Anushka Bull M.D.
[2022-07-12 22:28] VITALS: BP 192/91; PULSE 72; RESP 20; O2SAT 98
[2022-07-12 22:41] VITALS: PULSE 77
[2022-07-12] MEDS: lisinopriL 20 MG TABLET 40 MG PO (22:41)
[2022-07-12] MEDS: METOPROLOL TARTRATE 50 MG TAB PO (22:41)
[2022-07-12 22:57] LABS: Basophils Absolute Auto 0.1 K/mm3 (0.0-0.1); Basophils Percent Auto 0.8 % (0.2-1.2); Eosinophils Absolute Auto 0.2 K/mm3 (0-0.3); Eosinophils Percent Auto 2.9 % (0-4.4); Hemoglobin 15.3 g/dL (12.0-15.0); Immature Granulocyte Absolute 0.03 K/mm3 (0.00-0.031); Immature Granulocyte Percent A 0.4 % (0-0.5); Lymphocytes Absolute Auto 2.88 K/mm3 (0.9-3.2); Lymphocytes Percent Auto 38.6 % (18.3-44.2); Mean Corpuscular HGB Conc 33.3 g/dl (32-36); Mean Corpuscular Hemoglobin 33.4 pg (26-34); Mean Corpuscular Volume 100.4 fl (80-100); Mean Platelet Volume 9.1 fl (7.4-10.4); Monocytes Absolute Auto 0.7 K/mm3 (0.1-0.6); Monocytes Percent Auto 9.1 % (2.6-8.5); Neutrophils Absolute Auto 3.6 K/mm3 (1.3-6.7); Neutrophils Percent Auto 48.2 % (45.5-73.1); Platelet Count Result 185 k/mm3 (150-375); Red Blood Count 4.58 M/mm3 (4.2-5.4); Red Cell Distribution Width 13.2 % (11.5-14.5); White Blood Count 7.5 K/mm3 (4.5-10.0)
--- NOTE | 2022-07-12 22:57 | ED.RECABL ---
HPI - Recheck/Abnormal Lab/Rx General Chief Complaint: Recheck/Abnormal Lab/Rx Stated Complaint: High BP Time Seen by Provider: 07/12/22 22:36 History of Present Illness HPI narrative: Patient is a 81-year-old female here for evaluation of elevated blood pressures today. Patient states that she woke up and noticed a some bulging veins in that area. She states that she took her blood pressure at home and it was very elevated with systolic >200 so she decided to get checked at [facility]. Reportedly it was 220 systolic. The pharmacist recommended her come to the ER. She went to an urgent care who referred her here. Patient's only complaint is having a weird sensation to her left druze and the throbbing veins. She denies any chest pain, shortness of breath, visual changes, unilateral weakness, fevers or chills. She has a history of hypertension and has been compliant with her home medicines, she states that she saw her solution sales senior executive this week and her blood pressure was 130/80. Has a history of a minor heart attack in 2018- no intervention was done. Related Data Home Medications Medication Instructions Recorded Confirmed isosorbide mononitrate 30 mg 30 mg PO DAILY 11/11/20 04/16/22 tablet,extended release 24 hr latanoprost 0.005 % eye drops 1 drp LEFT EYE HS 11/11/20 04/16/22 timolol maleate 0.5 % eye drops 0.5 drp LEFT EYE DAILY 04/08/22 04/16/22 aspirin 81 mg tablet,delayed 81 mg PO DAILY 05/05/22 release (Adult Low Dose Aspirin) Allergies Allergy/AdvReac Type Severity Reaction Status Date / Time Aminoglycosides Allergy Mild WORSENS Verified 07/12/22 18:24 THE WOUND AND GETS INFECTED bacitracin Allergy Unknown Unknown Verified 07/12/22 18:24 ciprofloxacin Allergy Unknown Unknown Verified 07/12/22 18:24 levofloxacin Allergy Unknown Unknown Verified 07/12/22 18:24 neomycin Allergy Unknown Unknown Verified 07/12/22 18:24 Penicillins Allergy Unknown Hives Verified 07/12/22 18:24 polymyxin B Allergy Unknown Unknown Verified 07/12/22 18:24 povidone Allergy Unknown Unknown Verified 07/12/22 18:24 soap Allergy Unknown Unknown Verified 07/12/22 18:24 doxycycline Allergy Unknown Verified 07/12/22 18:24 povidone-iodine Allergy Unknown Verified 07/12/22 18:24 [From Betadine] Review of Systems Review of Systems: Gen: Denies fevers or chills Eyes: Denies eye pain or visual change ENT: Denies congestion Respiratory: Denies shortness of breath or cough CV: Denies chest pain or palpitations GI: Denies abdominal pain nausea, emesis or diarrhea : denies burning, urgency, frequency or hematuria Musculoskeletal: Denies back pain or muscle pain Neuro: Denies numbness, tingling, weakness or focal weakness Skin: Denies rash Except as documented, all other systems reviewed and negative [facility] Past Medical History Medical History Abnormal CT of the abdomen Adult hypothyroidism Anxiety ASHD (arteriosclerotic heart disease) Benign essential hypertension Bicuspid aortic valve BMI 25.0-25.9,adult BMI 26.0-26.9,adult Cataract Chronic GERD Colon cancer screening Depression Diverticulitis of colon without hemorrhage KAPADIA (dyspnea on exertion) Eczema Encounter for long-term current use of medication Encounter for Medicare annual wellness exam Encounter for routine adult health examination with abnormal findings Encounter for routine adult health examination without abnormal findings Essential hypertension Exposure to COVID-19 virus Fatigue First degree 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 GERD (gastroesophageal reflux disease) Glaucoma History of heart attack 2018 - no intervention Hx of Clostridium difficile infection Hyperlipidemia Hypothyroidism IBS (irritable bowel syndrome) Insomnia Leg cramps Low vision Muscle weakness On exterminator termite drug therapy KELLY (obstructive sleep apnea) Non compliant with CPAP Other and unspecified hyperlipidemi
[2022-07-12 23:19] LABS: Troponin I < 0.012 ng/mL (0.000-0.034)
[2022-07-12 23:27] LABS: Appearance Urine Clear (Clear); Bacteria Urine None Seen /hpf; Bilirubin Urine Negative (Negative); Blood Urine Negative (Negative); Color Urine Yellow (Yellow); Glucose Urine UA Negative (Negative); Ketones Urine Negative (Negative); Leukocyte Esterase Ur 1+ LEU/UL (Negative); Nitrate Urine Negative (Negative); Non Pathogenic Casts 0-2; Protein Urine Negative (Negative); RBC Urine 0-2 /hpf (0-2); Specific Grav Ur 1.008 (1.001-1.035); Squamous Epithelial Cell Urine None seen /hpf (Few); Urobilinogen Urine 0.2 mg/dL (<2.0)
[2022-07-12 23:48] VITALS: BP 162/89; PULSE 65; RESP 20; O2SAT 97
[2022-07-12 23:53] LABS: Add Urine Microscopic? YES
[2022-07-13] VITALS (16 sets, daily range): BP systolic 121–188; BP diastolic 52–98; PULSE 61–87; RESP 11–26; TEMP 35.9–36.7; O2SAT 95–100; BMI 26.4; BMI 25.9
[2022-07-13 00:43] LABS: Alanine Aminotransferase 20 U/L (6-35); Albumin Level 4.9 g/dL (3.5-5.1); Alkaline Phosphatase 95 U/L (38-126); Anion Gap 6 mmol/L (8-16); Aspartate Amino Transferase 30 U/L (14-36); Bilirubin,Total 0.7 mg/dL (0.2-1.3); Blood Urea Nitrogen 17 mg/dL (7-17); Calcium 9.9 mg/dL (8.4-10.2); Carbon Dioxide 29 mmol/L (22-30); Chloride 105 mmol/L (98-107); Estimated CRCL calculation 34 ml/min; Estimated Glomerular Filt Rate 53; Glucose 94 mg/dL (65-110); Potassium 4.2 mmol/L (3.4-5.0); Sodium 140 mmol/L (137-145)
[2022-07-13] MEDS: hydrALAZINE HCL 20 MG/ML VIAL 10 MG IV PUSH (01:50)
[2022-07-13] MEDS: GABAPENTIN 300 MG CAPSULE PO (02:40)
--- NOTE | 2022-07-13 02:42 | ECG_ITS ---
Measurements Intervals [place] Rate: 77 P: 74 [place]: 249 QRS: -48 QRSD: 133 T: 112 QT: 431 QTc: 491 Interpretive Statements SINUS RHYTHM WITH FIRST DEGREE AV BLOCK MARKED LEFT AXIS DEVIATION [QRS AXIS < -30] LEFT BUNDLE BRANCH BLOCK [120+ ms QRS DURATION, 80+ ms Q/S IN V1/V2, 85+ ms R IN I/aVL/V5/V6] COMPARED TO ECG 07/12/2022 20:58:15 NO SIGNIFICANT CHANGES Electronically Signed On 07-13-2022 12:22:08 CDT by Anushka Bull M.D.
--- NOTE | 2022-07-13 02:50 | PC.NURSE ---
Entered pt's room to administer gabapentin. Pt's face noted to be flushed and pt had her hand to her chest. When asked if pt was having any chest pain, pt reports mild chest tightness and SOB. Lungs auscultated and clear throughout. EKG performed and Padmini HERNANDEZ notified.
[2022-07-13 03:26] LABS: Troponin I 0.016 ng/mL (0.000-0.034)
[2022-07-13] MEDS: diphenhydrAMINE HCl CAP 25 MG CAPSULE PO (03:29)
[2022-07-13] MEDS: NITROGLYCERIN SL 0.4 MG TABLET SUBLINGUAL (03:44)
[2022-07-13] MEDS: ASPIRIN 325 MG TABLET PO (03:44)
--- NOTE | 2022-07-13 03:58 | ECG_ITS ---
Measurements Intervals [place] Rate: 61 P: 80 [place]: 226 QRS: -48 QRSD: 138 T: 46 QT: 466 QTc: 471 Interpretive Statements SINUS RHYTHM WITH FIRST DEGREE AV BLOCK MARKED LEFT AXIS DEVIATION [QRS AXIS < -30] LEFT BUNDLE BRANCH BLOCK [120+ ms QRS DURATION, 80+ ms Q/S IN V1/V2, 85+ ms R IN I/aVL/V5/V6] COMPARED TO ECG 07/13/2022 02:47:03 NO SIGNIFICANT CHANGES Electronically Signed On 07-13-2022 12:23:34 CDT by Anushka Bull M.D.
[2022-07-13 04:41] LABS: Erythrocyte Sedimentation Rate 11 mm/hr (0-20)
[2022-07-13 06:31] LABS: Troponin I < 0.012 ng/mL (0.000-0.034)
--- NOTE | 2022-07-13 06:33 | ADMGEN ---
This patient, Amy Boyd, was admitted to IMU Room 203-01. Patient/family oriented to hospital policies and general routines including ID bracelet, bed and alarms, visiting hours, pain management, procedures, bathroom and other care routines, personal items, smoking policy, room service/diet, and visiting hours. Information on how to activate the Rapid Response Team has been discussed. Patient/Family are encouraged to report perceived risks to care and to ask questions if they do not understand what they are told or what they should do.
--- NOTE | 2022-07-13 13:27 | PM.SD2 ---
Same Day Admit/Disch: HPI History of Present Illness Chief complaint: hypertensive crisis Narrative: Amy Boyd is a 81 year old female admitted for dizziness and high blood pressures Pt felt like her veins were bulging from her head and felt very dizzy Pt called her daughter who told her to check her blood pressure. her blood pressure was high at that time, pt went to the as planned, came back checked her blood pressure which was still high, pt went to [facility] and got it checked there, pharmacist advised her to go to ED for high BP readings. Pt went to urgent care they told her to go to ED as her BP still remained high. Pts admission blood pressure here was 220/ 100 pt was given iv hydralazine and restarted on her home medications. Pt states she takes her medications, pt states she has been very busy all last week may the reason for her high bps. trop x3 are negative blood pressure is better. Pt really wants to go home. PMFSH Past Medical History Medical History Abnormal CT of the abdomen Adult hypothyroidism Anxiety ASHD (arteriosclerotic heart disease) Benign essential hypertension Bicuspid aortic valve BMI 25.0-25.9,adult BMI 26.0-26.9,adult Cataract Chronic GERD Colon cancer screening Depression Diverticulitis of colon without hemorrhage KAPADIA (dyspnea on exertion) Eczema Encounter for long-term current use of medication Encounter for Medicare annual wellness exam Encounter for routine adult health examination with abnormal findings Encounter for routine adult health examination without abnormal findings Essential hypertension Exposure to COVID-19 virus Fatigue First degree 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 GERD (gastroesophageal reflux disease) Glaucoma History of heart attack 2018 - no intervention Hx of Clostridium difficile infection Hyperlipidemia Hypothyroidism IBS (irritable bowel syndrome) Insomnia Leg cramps Low vision Muscle weakness 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 KELLY (obstructive sleep apnea) Non compliant with CPAP Other and unspecified hyperlipidemia PVC (premature ventricular contraction) Recurrent sinus infections RLS (restless legs syndrome) Skin lesion of right arm UTI (urinary tract infection) UTI symptoms Vision loss Surgical History Surgical History H/O tubal ligation H/O: hysterectomy History of cataract surgery History of lung surgery Due to blebs History of removal of pigmented skin lesion Family History Family History Mother Diabetes mellitus Depression Thyroid disease Father Hypertension Heart disease Acute myocardial infarction COPD (chronic obstructive pulmonary disease) Sibling FH: prostate cancer Social History Social History Social History: The patient is and lives home alone. She has 2 children. She states that she has no power of estate attorney for healthcare. She is retired. Code status full code Smoking packs per day: 1.5 Smoking cigarettes per day: 30.0 Years smoked: 20 Smoking pack-years: 30.00 Smoking status: Former smoker Tobacco type: cigarettes Smoking end date: 12/11/80 Alcohol intake: current Drinks per week: 14 Alcohol use details: 1-2 glasses of wine/vodka most days Substance use: never Substance use type: does not use Lack of Transportation: No Lack of Food: Never True Current Housing: I Have Housing Concerned About Future Housing: No Difficulty Paying Gas/Electric Bills: No Difficulty Paying for Meds: No Currently Unemployed: No Education: Trade/Vocational Certificate Difficulty w/ Childcare or Family Care: No Living arrangements: alone Spiritual care concerns: No Same Day Admit/Disch: Med Pre-admit Medications Home Medications Medication
== END 2022-07-13 15:34 | disposition home or self-care (01) ==
LOC: ANHED 07-13 04:23 → ANHIMU 07-13 04:47
PROVIDERS: Admitting Provider Family Medicine; Emergency Provider Physician Assistant; Visit Provider Family Medicine
DX: I16.9 Hypertensive crisis, unspecified (principal); I25.2 Old myocardial infarction; E03.9 Hypothyroidism, unspecified; F41.9 Anxiety disorder, unspecified; I25.10 Atherosclerotic heart disease of native coronary artery without angina pectoris; R51.9 Headache, unspecified; Q23.1 Congenital insufficiency of aortic valve; K21.9 Gastro-esophageal reflux disease without esophagitis; I44.0 Atrioventricular block, first degree; I44.7 Left bundle-branch block, unspecified; H40.9 Unspecified glaucoma; K58.9 Irritable bowel syndrome, unspecified; G47.33 Obstructive sleep apnea (adult) (pediatric); G25.81 Restless legs syndrome; Z87.891 Personal history of nicotine dependence; F10.90 Alcohol use, unspecified, uncomplicated; Z79.82 Long term (current) use of aspirin; Z79.899 Other long term (current) drug therapy; Z82.49 Family history of ischemic heart disease and other diseases of the circulatory system
CPT/HCPCS: 36415; 70496; 70498; 71046; 80053; 81001; 84484; 85025; 85652; 87086; 87088; 93005; 96374; 99285; A9270; G0378; J0360; Q9967

== ENCOUNTER 2022-07-25 10:40 | Emergency (ER) | payer MEDICARE, SELFPAY ==
[2022-07-25 10:52] VITALS: BP 152/70; PULSE 72; RESP 18; TEMP 36.3; O2SAT 98
--- NOTE | 2022-07-25 11:15 | ED.GENADULT ---
HPI - General Adult General Chief complaint: Urogenital-Female Stated complaint: UTI Source: patient and RN notes reviewed History of Present Illness HPI narrative: 81-year-old female presents to urgent care with complaints of dysuria and urinary frequency. Patient states her symptoms started this morning. Patient states she just finished a prescription of Macrobid for a UTI and ended on . Patient states she had the chills earlier and has been slightly nauseous.Patient was seen at her doctor's office yesterday with no issues. Patient denies any fevers, back pain, chest pain, shortness of breath, or vomiting. Some parts of this dictation were generated by voice recognition software and may contain typographical and/or grammatical inaccuracies. Related Data Home Medications Medication Instructions Recorded Confirmed isosorbide mononitrate 30 mg 30 mg PO DAILY 11/11/20 07/25/22 tablet,extended release 24 hr latanoprost 0.005 % eye drops 1 drp LEFT EYE HS 11/11/20 07/25/22 timolol maleate 0.5 % eye drops 0.5 drp LEFT EYE DAILY 04/08/22 07/25/22 aspirin 81 mg tablet,delayed 81 mg PO DAILY 05/05/22 07/25/22 release (Adult Low Dose Aspirin) Allergies Allergy/AdvReac Type Severity Reaction Status Date / Time doxycycline Allergy Intermediate Diarrhea Verified 07/25/22 11:00 levofloxacin Allergy Intermediate Gastrointestinal Verified 07/25/22 11:01 Upset Aminoglycosides Allergy Mild WORSENS Verified 07/25/22 10:52 THE WOUND AND GETS INFECTED bacitracin Allergy Unknown Unknown Verified 07/25/22 10:52 neomycin Allergy Unknown Unknown Verified 07/25/22 10:52 Penicillins Allergy Unknown Hives Verified 07/25/22 10:52 polymyxin B Allergy Unknown Unknown Verified 07/25/22 10:52 povidone Allergy Unknown Unknown Verified 07/25/22 10:52 soap Allergy Unknown Unknown Verified 07/25/22 10:52 povidone-iodine Allergy Unknown Verified 07/25/22 10:52 [From Betadine] ciprofloxacin AdvReac Intermediate Confusion Verified 07/25/22 11:05 Review of Systems Review of Systems: Pertinent positives and pertinent negatives per HPI. [facility] Past Medical History Medical History Abnormal CT of the abdomen Adult hypothyroidism Anxiety ASHD (arteriosclerotic heart disease) Benign essential hypertension Bicuspid aortic valve BMI 25.0-25.9,adult BMI 26.0-26.9,adult Cataract Chronic GERD Colon cancer screening Depression Diverticulitis of colon without hemorrhage KAPADIA (dyspnea on exertion) Eczema Encounter for long-term current use of medication Encounter for Medicare annual wellness exam Encounter for routine adult health examination with abnormal findings Encounter for routine adult health examination without abnormal findings Essential hypertension Exposure to COVID-19 virus Fatigue First degree 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 GERD (gastroesophageal reflux disease) Glaucoma History of heart attack 2018 - no intervention Hx of Clostridium difficile infection Hyperlipidemia Hypothyroidism IBS (irritable bowel syndrome) Insomnia Leg cramps Low vision Muscle weakness 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 KELLY (obstructive sleep apnea) Non compliant with CPAP Other and unspecified hyperlipidemia PVC (premature ventricular contraction) Recurrent sinus infections RLS (restless legs syndrome) Skin lesion of right arm UTI (urinary tract infection) UTI symptoms Vision loss Surgical History Surgical History H/O tubal ligation H/O: hysterectomy History of cataract surgery History of lung surgery Due to blebs History of removal of pigmented skin lesion Family History Family History Mother Diabetes mellitus Depression Thyroid disease Father Hypertension Heart disease Acute myocardial infarction COPD (chronic obstructive pulmonary disease)
== END 2022-07-25 11:25 | disposition home or self-care (01) ==
PROVIDERS: Emergency Provider Nurse Practitioner Family; PCP Family Medicine
DX: N39.0 Urinary tract infection, site not specified (principal); Z87.891 Personal history of nicotine dependence; E03.9 Hypothyroidism, unspecified; I10 Essential (primary) hypertension; K21.9 Gastro-esophageal reflux disease without esophagitis; I25.2 Old myocardial infarction; Z86.19 Personal history of other infectious and parasitic diseases; E78.5 Hyperlipidemia, unspecified; G25.81 Restless legs syndrome; G47.33 Obstructive sleep apnea (adult) (pediatric); Z91.199 Patient's noncompliance with other medical treatment and regimen due to unspecified reason; H40.9 Unspecified glaucoma; I25.10 Atherosclerotic heart disease of native coronary artery without angina pectoris; Z79.82 Long term (current) use of aspirin
CPT/HCPCS: 81003; 87077; 87086; 87186; 99213; G0463

== ENCOUNTER 2022-08-21 10:22 | Outpatient (CLI) | payer MEDICARE, SELFPAY ==
--- NOTE | ~2022-08-21 | CT_ITS ---
CT Scan of the Chest without Contrast: Clinical Indication: 3 month follow-up of abnormal chest CT Technique: Contiguous sections were acquired throughout the chest without intravenous contrast. Dose reduction technique was used on this scan by utilizing automated exposure control and iterative recon struction technique. The dose-length product (DLP) was 150.87 mGy-cm. COMPARISON: 05/20/2022 Findings: There is no evidence of any significant mediastinal, hilar or axillary lymphadenopathy. Atherosclerot ic calcifications of the aorta and coronary arteries. There is no evidence of pleural or pericardial effusion. Mild biapical scarring unchanged. Left basilar scarring is unchanged. Previously noted groundglass op acities are resolved. Images through the upper abdomen reveal no abnormalities. Impression: Interval resolution of previously noted bilateral groundglass opacities, compatible with interval res olution of infectious/inflammatory process. Stable areas of mild scarring, as above. Reviewed, dictated and finalized at [facility]. Impression: Interval resolution of previously noted bilateral groundglass opacities, compat ible with interval resolution of infectious/inflammatory process. Stable areas of mild scarring, as above.
== END 2022-08-21 10:23 | disposition home or self-care (01) ==
PROVIDERS: PCP Family Medicine; Visit Provider Nurse Practitioner
DX: R93.89 Abnormal findings on diagnostic imaging of other specified body structures (principal); R91.8 Other nonspecific abnormal finding of lung field; J98.4 Other disorders of lung
CPT/HCPCS: 71250

== ENCOUNTER 2022-12-14 10:20 | Emergency (ER) | payer MEDICARE, SELFPAY ==
[2022-12-14 10:34] VITALS: BP 128/61; PULSE 62; RESP 14; TEMP 36.5; O2SAT 98
[2022-12-14 10:35] VITALS: BP 128/61; PULSE 62; RESP 14; TEMP 36.5; O2SAT 98
--- NOTE | 2022-12-14 10:35 | PC.NURSE ---
in br to obtain ua spec.
--- NOTE | 2022-12-14 10:53 | ED.FEMALEGU ---
HPI - Female Genitourinary General Chief complaint: Urogenital-Female Stated complaint: urinary/vaginal issue Time Seen by Provider: 12/14/22 10:45 Source: patient and RN notes reviewed Mode of arrival: ambulatory Limitations: no limitations History of Present Illness HPI Narrative: Patient presents today complaining of a 10-14 day history of external genital burning and irritation that has moved from her vulva posteriorly toward her rectum. She has been using topical and vaginal Monistat. States symptoms have somewhat improved on the Monistat, but when she stopped using it they worsened. Patient denies any vaginal discharge or odor. She is also stating that she could possibly have a UTI. She denies any dysuria, hematuria, frequency or urgency, but she did a home urine test and states that it was suggestive of a UTI. Related Data Home Medications Medication Instructions Recorded Confirmed isosorbide mononitrate 30 mg 30 mg PO DAILY 11/11/20 08/06/22 tablet,extended release 24 hr latanoprost 0.005 % eye drops 1 drp LEFT EYE HS 11/11/20 08/06/22 timolol maleate 0.5 % eye drops 0.5 drp LEFT EYE DAILY 04/08/22 08/06/22 aspirin 81 mg tablet,delayed 81 mg PO DAILY 05/05/22 08/06/22 release (Adult Low Dose Aspirin) Allergies Allergy/AdvReac Type Severity Reaction Status Date / Time doxycycline Allergy Intermediate Diarrhea Verified 12/14/22 10:34 levofloxacin Allergy Intermediate Gastrointestinal Verified 12/14/22 10:34 Upset Aminoglycosides Allergy Mild WORSENS Verified 12/14/22 10:34 THE WOUND AND GETS INFECTED bacitracin Allergy Unknown Unknown Verified 12/14/22 10:34 neomycin Allergy Unknown Unknown Verified 12/14/22 10:34 Penicillins Allergy Unknown Hives Verified 12/14/22 10:34 polymyxin B Allergy Unknown Unknown Verified 12/14/22 10:34 povidone Allergy Unknown Unknown Verified 12/14/22 10:34 soap Allergy Unknown Unknown Verified 12/14/22 10:34 povidone-iodine Allergy Unknown Verified 12/14/22 10:34 [From Betadine] ciprofloxacin AdvReac Intermediate Confusion Verified 08/06/22 13:05 Review of Systems Review of Systems: CONSTITUTIONAL: Denies body aches, fever, chills, or sweats. EYES: Denies visual changes, redness, or discharge. ENT: Denies rhinorrhea, congestion, sore throat, or otalgia. CARDIOVASCULAR: Denies chest pain, palpitations, or edema. RESPIRATORY: Denies cough or dyspnea. GASTROINTESTINAL: Denies abdominal pain, nausea, vomiting, or diarrhea. GENITOURINARY: Denies dysuria or hematuria. + genital irritation SKIN: Denies rash, itching, or wounds. MUSCULOSKELETAL: Denies back pain, joint pain, or myalgia. NEUROLOGIC: Denies headache, numbness, tingling, or weakness. PSYCH: Denies depression or anxiety. [facility] Past Medical History Medical History Abnormal CT of the abdomen Adult hypothyroidism Anxiety ASHD (arteriosclerotic heart disease) Benign essential hypertension Bicuspid aortic valve BMI 25.0-25.9,adult BMI 26.0-26.9,adult Cataract Chronic GERD Colon cancer screening Depression Diverticulitis of colon without hemorrhage KAPADIA (dyspnea on exertion) Eczema Encounter for long-term current use of medication Encounter for Medicare annual wellness exam Encounter for routine adult health examination with abnormal findings Encounter for routine adult health examination without abnormal findings Essential hypertension Exposure to COVID-19 virus Fatigue First degree 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 GERD (gastroesophageal reflux disease) Glaucoma History of heart attack 2018 - no intervention Hx of Clostridium difficile infection Hyperlipidemia Hypothyroidism IBS (irritable bowel syndrome) Insomnia Leg cramps Low vision Muscle weakness 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
== END 2022-12-14 11:26 | disposition home or self-care (01) ==
PROVIDERS: Emergency Provider Nurse Practitioner; PCP Family Medicine
DX: N39.0 Urinary tract infection, site not specified (principal); Z87.891 Personal history of nicotine dependence; E03.9 Hypothyroidism, unspecified; I25.10 Atherosclerotic heart disease of native coronary artery without angina pectoris; I10 Essential (primary) hypertension; K21.9 Gastro-esophageal reflux disease without esophagitis; I25.2 Old myocardial infarction; E78.5 Hyperlipidemia, unspecified; G25.81 Restless legs syndrome; Z79.82 Long term (current) use of aspirin
CPT/HCPCS: 81003; 87086; 87088; 99213; G0463

== ENCOUNTER 2023-06-09 14:19 | Outpatient (CLI) | payer MEDICARE, SELFPAY ==
--- NOTE | ~2023-06-09 | XR_ITS ---
EXAMINATION: XR chest 2V DATE: 06/09/2023 14:40 INDICATION: Shortness of breath and cough TECHNIQUE: PA and lateral views of the chest were obtained. COMPARISON: Chest radiograph dated 07/12/2022 FINDINGS: Mild biapical pleural-parenchymal scarring. Unchanged mild fine loss in left hemithorax with elevatio n of left hemidiaphragm. Thoracotomy with resection of the majority of the left sixth rib with adjace nt pleural parenchymal scarring along the lateral and inferior left lung resulting in some blunting a t the costophrenic angle. No new airspace opacities, pulmonary edema, pleural effusion or pneumothora x. Heart size is normal. IMPRESSION: 1. Volume loss and pleural parenchymal scarring at the lateral left lower lung zone likely related to prior surgery given the presence of a left sixth rib thoracotomy defect. Correlate with surgical his tory. Reviewed, dictated and finalized at location [facility]. SIFICATION OFFICER IMPRESSION: 1. Volume loss and pleural parenchymal scarring at the lateral left lower lung zone likely related to prior surgery given the presence of a left sixth rib tho racotomy defect. Correlate with surgical history.
[2023-06-09 15:26] LABS: Influenza A QL RT-PCR Negative (Negative); Influenza B QL RT-PCR Negative (Negative); RSV RNA, RT-PCR Negative (Negative); SARS-CoV-2 RNA PCR Positive (Negative)
== END 2023-06-09 14:20 | disposition home or self-care (01) ==
PROVIDERS: PCP Nurse Practitioner Family; Visit Provider Nurse Practitioner
DX: R06.02 Shortness of breath (principal); R68.89 Other general symptoms and signs; U07.1 COVID-19
CPT/HCPCS: 71046; 87637

== ENCOUNTER 2023-06-28 13:15 | Emergency (ER) | payer MEDICARE, SELFPAY ==
[2023-06-28] VITALS (8 sets, daily range): BP systolic 121–140; BP diastolic 63–80; PULSE 75–116; RESP 18–31; TEMP 36.5; O2SAT 96
--- NOTE | ~2023-06-28 | CT_ITS ---
EXAMINATION: CTA chest PE abdomen pel DATE: 06/28/2023 22:02 INDICATION: chest pain shortness of breath eval for PE, LLQ ab TECHNIQUE: Computed tomography angiography (CTA) of the chest was performed with 100 mL Omnipaque-350 intravenous contrast timed to evaluate the pulmonary arteries, followed by portal venous phase imagi ng of the abdomen and pelvis. Coronal maximum intensity projection 3D-reconstructions were created by the technologist. The dose-length product (DLP) was 784.93 mGy-cm. Automated exposure control and it erative reconstruction technique were employed. COMPARISON: CT chest 08/21/2022; CT abdomen pelvis 12/11/2016. FINDINGS: CHEST: Lung parenchyma and airways: Biapical and bibasilar scarring. Dependent reticular opacities associate d with some areas of scarring in the dependent right lower lobe and to a lesser extent the lingula an d left lower lobe. Pleura: Unremarkable. Thoracic inlet, axillae and chest wall: No thyroid or soft tissue mass. Thoracic aorta: No significant dilation. No dissection. Mediastinum: Enlarged right hilar lymph nodes. Heart and pericardium: Normal. Coronary artery calcifications: Absent. Thoracic bones: No acute osseous finding. Left sixth rib thoracotomy. Pulmonary arteries: Study quality: Adequate. No pulmonary emboli detected. ABDOMEN/PELVIS: Liver: Normal. Biliary/Gallbladder: No bile duct dilation. Pancreas: Moderate atrophy. Spleen: Normal. Adrenals:No mass. Kidneys: No suspicious mass, obstructing stone, or hydronephrosis. GI tract: Moderate distal esophageal and gastric wall edema. No small or large bowel dilation. Normal appendix. Diverticulosis without diverticulitis. Mesentery/Peritoneum: No ascites, mass, or free air. Calcified peritoneal bodies. Retroperitoneum: No mass. Atherosclerotic abdominal aortic and/or arterial calcifications. Pelvis: Calcified uterine fibroid. Pelvic organs are otherwise within normal limits. Soft Tissues: Soft tissues and body wall unremarkable. Abdominopelvic bones: No acute osseous finding. IMPRESSION: No CT evidence of acute pulmonary embolus. Chronic appearing pulmonary opacities related to scarring and possible postinfectious changes. Atypic al infection or developing interstitial disease not excluded. Right hilar lymphadenopathy. Moderate esophagitis/gastritis. Reviewed, dictated and finalized at location [facility]. IMPRESSION: No CT evidence of acute pulmonary embolus. Chronic appearing pulmonary opacities related to scarring and possible postinfe ctious changes. Atypical infection or developing interstitial disease not exclu ded. Right hilar lymphadenopathy. Moderate esophagitis/gastritis.
--- NOTE | ~2023-06-28 | XR_ITS ---
Clinical Indication: Cough PA and lateral views of the chest: Comparison: 06/09/2023 Findings: Chronic blunting of left costophrenic angle noted. No acute consolidation or pleural effusi on evident. Cardiomediastinal silhouette is within normal limits. Left sixth rib thoracotomy noted. Impression: No acute abnormalities. Reviewed, dictated and finalized at [facility]. Impression: No acute abnormalities.
--- NOTE | 2023-06-28 13:17 | ECG_ITS ---
Measurements Intervals [place] Rate: 72 P: 81 CT: 218 QRS: -52 QRSD: 126 T: 58 QT: 421 QTc: 462 Interpretive Statements SINUS RHYTHM WITH FIRST DEGREE AV BLOCK LEFT AXIS DEVIATION LEFT BUNDLE BRANCH BLOCK BASELINE ARTIFACT- I, II, AVR, AVL ABNORMAL ECG COMPARED TO ECG 07/13/2022 04:11:28 NO SIGNIFICANT CHANGES Electronically Signed On 06-28-2023 14:07:35 CDT by Kieran Palmer D.O.
[2023-06-28 14:17] LABS: Basophils Absolute Auto 0.1 K/mm3 (0.0-0.1); Basophils Percent Auto 0.7 % (0.2-1.2); Eosinophils Absolute Auto 0.2 K/mm3 (0-0.3); Eosinophils Percent Auto 2.2 % (0-4.4); Hematocrit 47.5 % (37.0-47.0); Immature Granulocyte Absolute 0.14 K/mm3 (0.00-0.031); Immature Granulocyte Percent A 1.6 % (0-0.5); Lymphocytes Absolute Auto 1.13 K/mm3 (0.9-3.2); Lymphocytes Percent Auto 13.1 % (18.3-44.2); Mean Corpuscular HGB Conc 33.7 g/dl (32-36); Mean Corpuscular Hemoglobin 33.2 pg (26-34); Mean Corpuscular Volume 98.5 fl (80-100); Mean Platelet Volume 8.8 fl (7.4-10.4); Monocytes Absolute Auto 0.6 K/mm3 (0.1-0.6); Monocytes Percent Auto 7.1 % (2.6-8.5); Neutrophils Absolute Auto 6.5 K/mm3 (1.3-6.7); Neutrophils Percent Auto 75.3 % (45.5-73.1); Platelet Count Result 204 k/mm3 (150-375); Red Blood Count 4.82 M/mm3 (4.2-5.4); Red Cell Distribution Width 12.1 % (11.5-14.5); White Blood Count 8.6 K/mm3 (4.5-10.0)
[2023-06-28 14:31] LABS: Alanine Aminotransferase 31 U/L (6-35); Albumin Level 4.3 g/dL (3.5-5.1); Alkaline Phosphatase 119 U/L (38-126); Anion Gap 7 mmol/L (8-16); Aspartate Amino Transferase 39 U/L (14-36); Bilirubin,Total 0.8 mg/dL (0.2-1.3); Blood Urea Nitrogen 11 mg/dL (7-17); Calcium 9.4 mg/dL (8.4-10.2); Carbon Dioxide 27 mmol/L (22-30); Chloride 96 mmol/L (98-107); Estimated CRCL calculation 41 ml/min; Estimated Glomerular Filt Rate > 60; Glucose 109 mg/dL (65-110); Lipase 65 U/L (23-300); Potassium 3.9 mmol/L (3.4-5.0); Sodium 130 mmol/L (137-145)
[2023-06-28 14:37] LABS: Prothrombin Time 13.7 Seconds (11.1-14.7)
[2023-06-28 14:38] LABS: Partial Thromboplastin Time 32.8 Seconds (22.3-36.8)
[2023-06-28 14:42] LABS: Troponin I < 0.012 ng/mL (0.000-0.034)
--- NOTE | 2023-06-28 15:02 | ED.GENADULT ---
HPI - General Adult General Chief complaint: Chest Pain <Maryann Butterfield FUNERAL PREARRANGEMENT COUNSELOR - Last Filed: 06/28/23 15:07> Stated complaint: chest pain <Maryann Butterfield FUNERAL PREARRANGEMENT COUNSELOR - Last Filed: 06/28/23 15:07> Time Seen by Provider: 06/28/23 15:02 <Maryann Butterfield FUNERAL PREARRANGEMENT COUNSELOR - Last Filed: 06/28/23 15:07> Focused HPI: Amy Boyd is an 82 y/o female who presents today with reports of having COVID about a month ago and she was feeling better but she started to feel worse this past wednesday with generally fatigued / nausea / vomiting/ febrile all weekend that broke today / cough and a little chest pain and abdominal pain. GENERAL: no acute distress. HEAD: Normocephalic, atraumatic. CHEST: Clear to auscultation. ?No respiratory distress. HEART: Regular rate and rhythm.? NEURO: ?Alert and oriented x3. Patient screened in triage and initial orders placed.? ?Additional care and disposition to be based upon?diagnostic testing and treatment. <Maryann Butterfield, FUNERAL PREARRANGEMENT COUNSELOR - Last Filed: 06/28/23 15:07> History of Present Illness HPI narrative: Is a 2-year-old female who presents emerged from with chief complaint of generalized fatigue nausea cough chest discomfort and abdominal discomfort. Patient reports he was diagnosed with COVID about a month ago patient was treated with Zithromax and steroids at that time patient reports that she was feeling better and then started getting worse again. <Ross Moore MD - Last Filed: 06/28/23 23:39> Related Data Home medications: Home Medications Medication Instructions Recorded Confirmed isosorbide mononitrate 30 mg 30 mg PO DAILY 11/11/20 06/09/23 tablet,extended release 24 hr latanoprost 0.005 % eye drops 1 drp LEFT EYE HS 11/11/20 06/09/23 timolol maleate 0.5 % eye drops 0.5 drp LEFT EYE DAILY 04/08/22 06/09/23 aspirin 81 mg tablet,delayed 81 mg PO DAILY 05/05/22 06/09/23 release (Adult Low Dose Aspirin) <Maryann Butterfield FUNERAL PREARRANGEMENT COUNSELOR - Last Filed: 06/28/23 15:07> Allergies/adverse reactions: Allergies Allergy/AdvReac Type Severity Reaction Status Date / Time doxycycline Allergy Intermediate Diarrhea Verified 06/09/23 13:25 levofloxacin Allergy Intermediate Gastrointestinal Verified 06/09/23 13:25 Upset Aminoglycosides Allergy Mild WORSENS Verified 06/09/23 13:25 THE WOUND AND GETS INFECTED bacitracin Allergy Unknown Unknown Verified 06/09/23 13:25 neomycin Allergy Unknown Unknown Verified 06/09/23 13:25 Penicillins Allergy Unknown Hives Verified 06/09/23 13:25 polymyxin B Allergy Unknown Unknown Verified 06/09/23 13:25 povidone Allergy Unknown Unknown Verified 06/09/23 13:25 soap Allergy Unknown Unknown Verified 06/09/23 13:25 povidone-iodine Allergy Unknown Verified 06/09/23 13:25 [From Betadine] ciprofloxacin AdvReac Intermediate Confusion Verified 06/09/23 13:25 <Maryann Butterfield, FUNERAL PREARRANGEMENT COUNSELOR - Last Filed: 06/28/23 15:07> Review of Systems Review of Systems: A 10 system review of systems was completed on the patient and is negative except for what is stated in the HPI. Nursing and ancillary documentation was reviewed. <Ross Moore MD - Last Filed: 06/28/23 23:39> PENDING SALE TO [facility] Past Medical History Medical History: Medical History Abnormal CT of the abdomen Adult hypothyroidism Anxiety ASHD (arteriosclerotic heart disease) Benign essential hypertension Bicuspid aortic valve BMI 25.0-25.9,adult BMI 26.0-26.9,adult Cataract Chronic GERD Colon cancer screening Depression Diverticulitis of colon without hemorrhage KAPADIA (dyspnea on exertion) Eczema Encounter for long-term current use of medication Encounter for Medicare annual wellness exam Encounter for routine adult health examination with abnormal findings Encounter for routine adult health examination without abnormal findings Essential hypertension Exposure to COVID-19 virus Fatigue First degree atrioventricular block by angela
[2023-06-28] MEDS: ONDANSETRON HCL ODT 4 MG TABLET PO (17:25)
[2023-06-28 20:49] LABS: Troponin I < 0.012 ng/mL (0.000-0.034)
[2023-06-28 20:52] LABS: Influenza A QL RT-PCR Negative (Negative); Influenza B QL RT-PCR Negative (Negative); RSV RNA, RT-PCR Negative (Negative); SARS-CoV-2 RNA PCR Positive (Negative)
[2023-06-28] MEDS: SODIUM CHLORIDE 0.9% IV 1,000 ML 999 ML IV CONT (21:46)
[2023-06-28] MEDS: ONDANSETRON INJ 4 MG/2 ML VIAL IV PUSH (21:46)
[2023-06-29 00:07] VITALS: PULSE 100; RESP 20; O2SAT 94
--- NOTE | 2023-07-14 15:01 | PC.NURSE ---
LATE ENTRY This note is being entered to document information to the patient's record. The following information was omitted on [06/28/23], by [Jasmeet Pedro RN]. NS stop time was 2245, 1000ml infused
== END 2023-06-29 00:12 | disposition home or self-care (01) ==
PROVIDERS: Emergency Medicine; Nurse Practitioner Family; Emergency Provider Emergency Medicine; PCP Nurse Practitioner Family
DX: U07.1 COVID-19 (principal); J18.9 Pneumonia, unspecified organism; I25.10 Atherosclerotic heart disease of native coronary artery without angina pectoris; I10 Essential (primary) hypertension; I25.2 Old myocardial infarction; E78.5 Hyperlipidemia, unspecified; E03.9 Hypothyroidism, unspecified; G47.33 Obstructive sleep apnea (adult) (pediatric); F41.9 Anxiety disorder, unspecified; F32.A Depression, unspecified; K21.9 Gastro-esophageal reflux disease without esophagitis; H40.9 Unspecified glaucoma
CPT/HCPCS: 36415; 71046; 71275; 74177; 80053; 83690; 84484; 85025; 85610; 85730; 87637; 93005; 96361; 96374; 99284; A9270; J2405; J7030; Q9967

== ENCOUNTER 2024-12-28 12:29 | Emergency (ER) | payer MEDICARE, SELFPAY ==
--- NOTE | 2024-12-28 12:31 | ED_ITS ---
HPI - Female Genitourinary General Chief complaint: Urogenital-Female Stated complaint: UTI Time Seen by Provider: 12/28/24 12:31 Source: patient Mode of arrival: ambulatory Limitations: no limitations History of Present Illness HPI Narrative: Patient is an 84-year-old female who presents with urgency and frequency since 3:00 a.m.. Patient also had some pelvic pressure. Denies any burning with urination, low back pain, fever, chills, nausea vomiting, diarrhea. Has had frequent UTIs recently. Does not currently have a urologist. MD elicited complaint: dysuria Related Data Home Medications ?Medication ?Instructions ?Recorded ?Confirmed ?Last Taken ?Type isosorbide mononitrate 30 mg 30 mg PO DAILY 11/11/20 0 11/20/24 12/18/20 History tablet,extended release 24 hr timolol maleate 0.5 % eye drops 0.5 drp LEFT EYE DAILY 04/08/22 11/20/24 Unknown History aspirin 81 mg tablet,delayed 81 mg PO DAILY 05/05/22 0 11/20/24 Unknown History release (Adult Low Dose Aspirin) latanoprost 0.005 % eye drops 1 drp ophthalmic (eye) H S 08/15/24 11/20/24 Unknown History Allergies Allergy/AdvReac Type Severity Reaction Status Date / Time doxycycline Allergy Intermediate Diarrhea Verified 12/28/24 12:40 levofloxacin Allergy Intermediate Gastrointestinal Verified 12/28/24 12:40 Upset Aminoglycosides Allergy Mild WORSENS Verified 12/28/24 12:40 THE WOUND AND GETS INFECTED nitrofurantoin Allergy Mild Hives Verified 12/28/24 12:40 bacitracin Allergy Unknown Unknown Verified 12/28/24 12:40 neomycin Allergy Unknown Unknown Verified 12/28/24 12:40 Penicillins Allergy Unknown Hives Verified 12/28/24 12:40 polymyxin B Allergy Unknown Unknown Verified 12/28/24 12:40 povidone Allergy Unknown Unknown Verified 12/28/24 12:40 soap Allergy Unknown Unknown Verified 12/28/24 12:40 povidone-iodine (From Allergy Unknown Verified 12/28/24 12:40 Betadine) ciprofloxacin AdvReac Intermediate Confusion Verified 12/28/24 12:40 Review of Systems Review of Systems: All systems reviewed & are unremarkable except as noted in HPI and below Constitutional: Constitutional: Denies chills, Denies fever(s), Denies headache(s), Denies malaise and Denies weakness Eyes: Eyes: Denies change in vision, Denies eye discharge and Denies irritation ENT: Denies otalgia, Denies headache(s), Denies nasal congestion, Denies nasal discharge, Denies sinus pain and Denies sore throat Cardiovascular: Cardiovascular: Denies chest pain, Denies edema, Denies palpitations and Denies dyspnea Respiratory: Respiratory: Denies cough and Denies dyspnea Gastrointestinal: Gastrointestinal: Denies abdominal pain, Denies diarrhea, Denies nausea and Denies vomiting Genitourinary: Genitourinary: Denies hematuria, Reports nocturia, Denies dysuria, Denies flank pain and Reports urinary urgency Musculoskeletal: Musculoskeletal: Denies back pain and Denies numbness Integumentary/Breasts: Skin/Breast: Denies pruritus and Denies rash Neurologic: Denies headache(s), Denies numbness and Denies weakness Psychiatric: Psychiatric: Reports no additional psychiatric complaints Endocrine: Endocrine: Denies palpitations PMFSH Past Medical History Medical History BMI 28.0-28.9,adult RLS (restless legs syndrome) On 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 control 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 Depression UTI symptoms Recurrent sinus infections PVC (premature ventricular contraction) Other and unspecified hyperlipidemia Muscle weakness Leg cramps KAPADIA (dyspnea on exertion) Diverticulitis of colon without hemorrhage Chronic GERD Cataract Benign essential hypertension Adult hypothyroidism Eczema Encounter for routine adult health examination with abnormal findings Hyperlipidemia ASHD (arteriosclerotic heart disease) UTI (urinary tract infection) Low vision Encounter for routine adult health examination without abnormal findings Exposure to COVID-19 virus Anxiety History of heart attack 2018 - no intervention KELLY (obstructive sleep apnea) Non compliant with CPAP Vision loss First degree 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 RLS (restless legs syndrome) Hx of Clostridium difficile infection On termite control 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 Encounter for Medicare annual wellness exam Bicuspid aortic valve BMI 25.0-25.9,adult BMI 26.0-26.9,adult Insomnia Glaucoma Abnormal CT of the abdomen Colon cancer screening Skin lesion of right arm Fatigue Encounter for long-term current use of medication GERD (gastroesophageal reflux disease) Essential hypertension IBS (irritable bowel syndrome) Hypothyroidism Surgical History Surgical History History of removal of pigmented skin lesion H/O tubal ligation History of lung surgery Due to blebs H/O: hysterectomy History of cataract surgery Family History Family History Mother Diabetes mellitus Depression Thyroid disease Macular degeneration Heart disease Father Hypertension Heart disease Acute myocardial infarction COPD (chronic obstructive pulmonary disease) Emphysema of lung Sibling FH: prostate cancer 1. shooting, 2. MVC, 3. tree fell on head. Social History Social History Social History: The patient is and lives home alone. She has 2 children. She states that she has no power of facility manager histology for healthcare. She is retired. Code status full code Smoking packs per day: 1.5 Smoking cigarettes per day: 30.0 Years smoked: 20 Smoking pack-years: 30.00 Smoking status: Former smoker Tobacco type: cigarettes Second hand tobacco smoke exposure: Yes Smoking end date: 12/11/80 Alcohol intake: current Drinks per week: 2 Alcohol use details: 1-2 glasses of wine/vodka per week Substance use: never Substance use type: does not use Do You Feel Safe in your Home?: Yes Lack of Transportation: No Lack of Food: Never True Current Housing: I Have Housing Concerned About Future Housing: No Difficulty Paying Gas/Electric Bills: No Difficulty Paying for Meds: No Currently Unemployed: No Education: Trade/Vocational Certificate Difficulty w/ Childcare or Family Care: No Living arrangements: alone Occupation/Education: retired 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 There is no relevant family history pertinent to the presenting complaint. Exam Const: General: cooperative, healthy appearing, comfortable, no acute distress and well nourished Nutritional Appearance: well nourished Orientation/consciousness: patient oriented x3 HENMT: Head: normocephalic and atraumatic Ears: external ears normal Face/Nose/Sinus: Normal external nose present, Normal nares present and normal facial exam Face and sinus: normal facial exam Eyes: General: appearance normal, both eyes and all related structures Pupils: Equal, round and reactive pupils present EOM: EOMs intact bilaterally Neck: Neck: normal visual inspection, full ROM and supple Chest: Chest palpation & inspection: normal inspection of the chest Resp: Effort & Inspection: normal respiratory effort and able to speak in complete sentences Cardio: Rate: regular rate Rhythm: regular rhythm GI: Inspection: normal to inspection GI Palp: No abdominal tenderness and Yes Soft to palpation : General: Yes no CVA tenderness Back/Spine/Pelvis: Back: no CVA tenderness Skin: General skin exam: normal color and no rashes or lesions noted Neuro: General: patient oriented x3 and moves all extremities Cranial nerves: Yes Equal, round and reactive pupils present Extrem: General: normal to inspection and full ROM Psych: Appearance: grossly normal and well kempt Course Course Emergency Course: Patient is aware of diagnosis, understands and agrees to treatment plan. Anticipatory guidance given. Patient agrees to follow-up as directed and is aware of reasons to seek care at the emergency department. Portions of this record may have been created with voice recognition software Level of Care: Express Care Visit Vital Signs Vital signs: Vital Signs Temperature 36.3 C L 12/28/24 12:36 Pulse Rate 61 12/28/24 12:36 Respiratory Rate 18 12/28/24 12:36 Blood Pressure 133/59 L 12/28/24 12:36 Pulse Oximetry 99 12/28/24 12:36 Oxygen Delivery Room Air 12/28/24 12:36 Temperature 36.3 C L 12/28/24 12:36 Pulse Rate 61 12/28/24 12:36 Respiratory Rate 18 12/28/24 12:36 Blood Pressure 133/59 L 12/28/24 12:36 Pulse Oximetry 99 12/28/24 12:36 Oxygen Delivery Room Air 12/28/24 12:36 Reviewed MDM - Female Genitourinary MDM Narrative Medical decision making narrative: Discussed the importance of following up with Urology as she has several allergies and limited to only Keflex. Exam findings and UA show probable UTI; patient is non-toxic appearing and is in no distress. No CMT, adnexal tenderness, or evidence of pelvic etiology. Patient is appropriate for outpatient treatment and follow-up. Differential Diagnosis Differential diagnosis: Likely urinary tract infection, bacterial vaginosis, trichomoniasis, cervicitis, vaginitis and cystitis Medical Records Attestation: I reviewed the patient's medical records. Lab Data Attestation: I reviewed the patient's lab results. Labs: Lab Results 12/28/24 Range/Units 12:42 POC Urine Color Light/pale POC Urine Clarity Cloudy POC Urine pH 6.0 POC Ur Specif Fortine 1.010 POC Urine Protein 2+ (Negative) POC Ur Glucose (UA) Negative (Negative) POC Urine Ketones Negative (Negative) POC Urine Blood 3+ (Negative) POC Urine Nitrite Negative (Negative) POC Urine Bilirubin Negative (Negative) POC Urine Urobilinogen 0.2 POC U Leukocyte Esteras 3+ (Negative) Discharge Plan Discharge Clinical Impression: Acute UTI Patient Disposition: Home Condition: Stable Instructions: Urinary Tract Infection in Older Adults (ED) Additional Instructions: We will send a urine culture to the lab, based on your symptoms and urine dip we will start treatment today. If culture comes back and bacteria is not susceptible to antibiotic, your prescription may change. Your symptoms should improve within a day of starting antibiotics, but you should finish all the antibiotic pills you get. Otherwise your infection might come back Continue with increased water intake. Take Tylenol or ibuprofen as needed for pain or fever. Follow-up with primary care provider for urine recheck or see ER visit if condition worsens with high fever, nausea, vomiting, severe back pain Patient Language: Korean Prescriptions: New cephalexin 500 mg capsule 500 mg PO Q12H 5 Days Qty: 10 0RF No Action latanoprost 0.005 % drops 1 drp ophthalmic (eye) HS isosorbide mononitrate 30 mg tablet extended release 24 hr 30 mg PO DAILY aspirin [Adult Low Dose Aspirin] 81 mg tablet,delayed release (DR/EC) 81 mg PO DAILY nystatin 100,000 unit/gram cream 1 applic topical TID Qty: 30 2RF nystatin 100,000 unit/gram powder 1 applic topical TID Qty: 30 2RF valacyclovir 1 gram tablet 1,000 mg PO TID Qty: 21 0RF timolol maleate 0.5 % drops 0.5 drp LEFT EYE DAILY rosuvastatin [Crestor] 10 mg tablet 10 mg PO DAILY Qty: 90 1RF gabapentin 300 mg capsule See Rx Instructions .ROUTE .COMPLEX Qty: 90 3RF Dose Instruction: Take 1 capsule by mouth at bedtime Rx Instructions: Take 1 capsule by mouth at bedtime amlodipine 5 mg tablet See Rx Instructions .ROUTE .COMPLEX Qty: 90 3RF Dose Instruction: Take 1 tablet by mouth once daily Rx Instructions: Take 1 tablet by mouth once daily trazodone 50 mg tablet See Rx Instructions .ROUTE .COMPLEX Qty: 90 3RF Dose Instruction: TAKE 1 TABLET BY MOUTH ONCE DAILY AT BEDTIME NEEDED FOR PAIN Rx Instructions: TAKE 1 TABLET BY MOUTH ONCE DAILY AT BEDTIME NEEDED FOR PAIN levothyroxine [Euthyrox] 75 mcg tablet 75 mcg PO DAILY Qty: 90 3RF lisinopril 40 mg tablet 40 mg PO BID Qty: 180 3RF metoprolol tartrate 50 mg tablet See Rx Instructions .ROUTE .COMPLEX Qty: 180 3RF Dose Instruction: TAKE 1 TABLET BY MOUTH EVERY 12 HOURS Rx Instructions: TAKE 1 TABLET BY MOUTH EVERY 12 HOURS Follow-up/Referrals: Valentin Lincoln MD [Physician, Urology] - 3 Days Referral Note: Frequent UTIs Dejuan Caballero APRN [Primary Care Provider, Internal Medicine] - 3 Days Time of Disposition: 13:00
[2024-12-28 12:36] VITALS: BP 133/59; PULSE 61; RESP 18; TEMP 36.3; O2SAT 99
[2024-12-28 12:50] LABS: EDUAAPPEAR Cloudy; EDUABILI Negative (Negative); EDUABLOOD 3+ (Negative); EDUACOLOR1 Light/Pale; EDUAGLUCOSE Negative (Negative); EDUAKETONE Negative (Negative); EDUALEUKO 3+ (Negative); EDUANITRATE Negative (Negative); EDUAPH 6.0; EDUAPROTEIN 2+ (Negative); EDUASPGRAVITY 1.010; EDUAUROBILI 0.2
== END 2024-12-28 13:05 | disposition home or self-care (01) ==
PROVIDERS: Emergency Provider Nurse Practitioner Family; PCP Nurse Practitioner
DX: N39.0 Urinary tract infection, site not specified (principal); Z87.891 Personal history of nicotine dependence; G25.81 Restless legs syndrome; K21.9 Gastro-esophageal reflux disease without esophagitis; I10 Essential (primary) hypertension; E03.9 Hypothyroidism, unspecified; E78.5 Hyperlipidemia, unspecified; I25.10 Atherosclerotic heart disease of native coronary artery without angina pectoris; I25.2 Old myocardial infarction; G47.30 Sleep apnea, unspecified; Z91.199 Patient's noncompliance with other medical treatment and regimen due to unspecified reason; H40.9 Unspecified glaucoma; F32.A Depression, unspecified
CPT/HCPCS: 81003; 87077; 87086; 87186; 99213; G0463